=== PATIENT | female | born 1945 | race Caucasian/White ===

== ENCOUNTER 2021-06-21 19:31 | Inpatient (IN) ==
[2021-06-21] MEDS ORDERED: 0.9 % SODIUM CHLORIDE 500 ML IV ONE ×3 (20:14→23:56)
[2021-06-21 21:04] LABS: POC Calcium, Ionized 1.87 (1.16-1.32); POC Creatinine 2.8 (0.6-1.2); POC Potassium 3.8 (3.3-5.1)
--- NOTE | 2021-06-21 21:20 | Emergency Department Note ---
HPI General Chief complaint: Weakness Stated complaint: weakness confusion Time Seen by Provider: 06/21/21 20:06 Source: EMS Mode of arrival: ambulatory Limitations: altered mental status History of Present Illness HPI Narrative: Narrative: 75-year-old female with a history of sarcoidosis CKD, dermatitis, memory deficit, OK, rheumatoid arthritis presenting to the ED for some generalized weakness. Her family member or roommate she says reports she has had some mild intermittent confusion and suspect she may have a UTI which she has had in the past. Patient just has some generalized fatigue she has no fever no chills no URI symptoms no chest pain or shortness of breath or cardiorespiratory complaints no abdominal pain no nausea vomiting or diarrhea, no obvious urinary symptoms but does admit she has had UTIs in the past. No other complaints Related Data Home Medications Medication Instructions Recorded Confirmed albuterol sulfate 90 mcg/actuation 2 puff INHALATION Q6H PRN 05/19/19 05/31/21 aerosol inhaler (Ventolin HFA) epinephrine 0.3 mg/0.3 mL 0.3 mg IM ONCE 05/19/19 05/31/21 injection, auto-injector acetaminophen 500 mg capsule 3,000 mg PO QDAY PRN cap 10/19/20 05/31/21 lidocaine 5 % topical patch 1 patch TOPICAL QDAY 10/19/20 05/31/21 calcium carbonate-vitamin D3 1 tab PO BID 12/08/20 05/31/21 [Calcium 600 + D(3)] escitalopram oxalate 20 mg tablet 40 mg PO QDAY tab 12/08/20 05/31/21 docusate sodium 250 mg capsule 250 mg PO BID 02/03/21 05/31/21 fluticasone propionate 50 2 spray INTRANASAL QDAY 02/03/21 05/31/21 mcg/actuation nasal spray,suspension (Flonase Allergy Relief) furosemide 40 mg tablet 40 mg PO QDAY 02/03/21 05/31/21 loratadine 10 mg tablet (Allergy 10 mg PO QDAY 02/03/21 05/31/21 Relief (loratadine)) potassium chloride 10 mEq 10 meq PO TID cap 02/03/21 05/31/21 capsule,extended release sennosides 8.6 mg tablet (Natural 8.6 mg PO QDAY PRN 02/03/21 05/31/21 Senna Laxative) hydroxyzine HCl 10 mg tablet 10 mg PO TID PRN 05/31/21 05/31/21 Allergies Allergy/AdvReac Type Severity Reaction Status Date / Time alendronate sodium Allergy Severe Unknown Verified 05/31/21 13:18 [From Fosamax] Penicillins Allergy Severe Unknown Verified 05/31/21 13:18 Hwkkfvj-PFT-FpV Reductase Allergy Severe Unknown Verified 05/31/21 13:18 Inhibitor [Hfqvcam-Asq-Owv Reductase Inhibitor] adhesive tape Allergy Unknown Unknown Verified 05/31/21 13:18 aspirin [From Percodan] Allergy Unknown Unknown Verified 05/31/21 13:18 atorvastatin Allergy Unknown Unknown Verified 05/31/21 13:18 carbamazepine Allergy Unknown Unknown Verified 05/31/21 13:18 egg Allergy Unknown Unknown Verified 05/31/21 13:18 feathers Allergy Unknown Unknown Verified 05/31/21 13:18 latex Allergy Unknown Unknown Verified 05/31/21 13:18 monosodium glutamate Allergy Unknown Unknown Verified 05/31/21 13:18 oxycodone Allergy Unknown Unknown Verified 05/31/21 13:18 pravastatin Allergy Unknown Unknown Verified 05/31/21 13:18 simvastatin [From Zocor] Allergy Unknown Unknown Verified 05/31/21 13:18 Sulfa (Sulfonamide Allergy Unknown Unknown Verified 05/31/21 13:18 Antibiotics) tramadol Allergy Unknown Unknown Verified 05/31/21 13:18 Review of Systems ROS ROS Narrative: Narrative: All systems ED: reviewed and negative except as stated. 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) Seasonal allergies (Chronic) Decreased urination (Chronic) Anxiety and depression (Chronic) Rheumatoid arthritis (Chronic) Upper back pain (Chronic) Leg pain (Chronic) DJD (degenerative joint disease) of knee (Chronic) Dizziness (Chronic) Arthritis (Chronic) Elevated sed rate (Chronic) CTIN (chronic tubulo-interstitial nephritis) (Chronic) Osteoarthritis (Chronic) CKD stage G3b/A2, GFR 30-44 and albumin creatinine ratio 30-299 mg/g (Chronic) Positive CHANNING (antinuclear antibody) (Chronic) Trigeminal neuralgia (Chronic) Hyperplastic colon polyp (Chronic) Adjustment disorder with depressed mood (Chronic) Allergic rhinitis (Chronic) Anemia, unspecified (Chronic) Benign neoplasm of colon (Chronic) Disorder of kidney and ureter, unspecified (Chronic) Closed fracture of lumbar vertebra (Chronic) Hyperlipidemia, unspecified (Chronic) Idiopathic urticaria (Chronic) Morbid (severe) obesity due to excess calories (Chronic) Neoplasm of unspecified behavior of digestive system (Chronic) BEHZAD (obstructive sleep apnea) (Chronic) Old myocardial infarction (Chronic) Other asthma (Chronic) Other osteoporosis without current pathological fracture (Chronic) Venous (peripheral) insufficiency (Chronic) Venous thrombosis (Chronic) Vitamin D deficiency (Chronic) Weakness (Acute) Acute exacerbation of CHF (congestive heart failure) (Acute) Facial rash (Acute) Encounter for screening for malignant neoplasm of colon (Acute) Hypercalcemia (Acute) Sarcoidosis of skin (Acute) Hypercalcemia (Acute) UTI (urinary tract infection) (Acute) BILLY (acute kidney injury) (Acute) Medical History Adenoid cystic carcinoma of parotid gland Adjustment disorder with depressed mood Allergic rhinitis Anemia, unspecified Anxiety and depression Arthritis Asymptomatic varicose veins Atrial enlargement, left Benign neoplasm of colon Cellulitis Legs CKD stage G3b/A2, GFR 30-44 and albumin creatinine ratio 30-299 mg/g Stable or slightly improved No evidence of glomerular nephritis or vasculitis TIN due to SArcoidosis and or NSAIDS/BL[place] II possible Closed fracture of lumbar vertebra CTIN (chronic tubulo-interstitial nephritis) Decreased renal function It would be easy to attribute all this patient's maladies to morbid obesity and DJD, however to do that you would have to ignore consistently elevated sedimentation rate now above 100 mm/h. That said, she has been diagnosed with a "vasculitis involving her skin" proximal muscle weakness that could be due to steroid use in the past or a myelopathy, skin changes that probably represent venous insufficiency but cannot ignore a vasculitic process, and finally an elevation in her creatinine most pronounced recently when she was on Celebrex but her GFR was not normal even back in 2013 and she now has 2 urinalyses that demonstrate marked pyuria. All that said, we need to obtain radiographic and laboratory evidence to look for a vasculitis involving the kidneys and perhaps the muscles. Decreased urination Deep vein thrombosis Disorder of kidney and ureter, unspecified Dizziness DJD (degenerative joint disease) of knee Elevated sed rate Doubt this has anything to do with the weakly positive CHANNING Sed rate greater than 100 raises the specter of a mitotic process and she is already had a parotid cancer resected Would benefit from comprehensive cancer screening through the [facility] Fungal dermatitis Hyperlipidemia, unspecified Hyperplastic colon polyp Idiopathic urticaria Leg pain Memory deficit Morbid (severe) obesity due to excess calories Morbid obesity Neoplasm of unspecified behavior of digestive system Old myocardial infarction BEHZAD (obstructive sleep apnea) Osteoarthritis Other asthma Other osteoporosis without current pathological fracture Positive CHANNING (antinuclear antibody) Certainly no evidence of lupus nephritis Rash and ESR > 100 suggests some sort of dermatositis / vasculitis STOP carbamazepine BASIS soap Avoid covid masking See Rheumatology and Dermatology Repeat serologies but not very informative in the past Rheumatoid arthritis Right bundle branch block Seasonal allergies Sedimentation rate elevation Given new rash...dermatology referral but to be honest, elevated ESR predated rash Trigeminal neuralgia Upper back pain Urge incontinence Vascular insufficiency of limb Vasculitis of skin Venous (peripheral) insufficiency Venous thrombosis Vision changes Vitamin D deficiency Surgical History History of bilateral breast reduction surgery History of colonoscopy (~2009) History of dental surgery full mouth extraction History of facial surgery Cancer was removed off of left side of pt face. History of superficial parotidectomy left level 2a dissection, sternocleidomastoid rotation flap History of surgery Fissurectomy Family History Mother Macular degeneration Glaucoma Father Myocardial infarction Brother Diabetes Asthma Sister Crohn's disease Lupus (systemic lupus erythematosus) Daughter Bipolar disorder Social History Smoking Status: Former smoker Alcohol Intake Frequency: a few times a month Substance Use: does not use Exam Narrative Narrative: Narrative: Constitutional: normally developed, a bit frail but nontoxic- appearing. Head: Normocephalic, atraumatic, Eyes: No Icterus, ENT: Dry mucus membranes, Neck: Supple, Cardiac: Normal heart sounds, palpable radial pulses, no peripheral edema Pulmonary: Normal respiratory effort. Breath sounds clear, no wheeze, rhonchi, rales, Gastrointestinal: Abdomen soft, non-distended, non-tender, Musculoskeletal: No gross deformities, well perfused Skin: warm, dry, generalized dry dermatitis appearance Neuro: Alert and orientedx2-3 answers most questions appropriately moving all 4 extremities with symmetric strength albeit some mild generalized weakness General Limitations: altered mental status Course Vital Signs Vital signs: Vital Signs Temperature 36.5 C 06/21/21 19:33 Pulse Rate 81 06/21/21 19:33 Respiratory Rate 17 06/21/21 19:33 Blood Pressure 148/73 06/21/21 19:33 Pulse Oximetry (%) 97 06/21/21 19:33 Temperature 35.9 C L 06/22/21 02:35 Pulse Rate 65 06/22/21 02:35 Respiratory Rate 20 06/22/21 02:35 Blood Pressure 129/79 06/22/21 02:35 Pulse Oximetry (%) 100 06/22/21 02:35 MDM MDM Narrative Medical decision making narrative: Narrative: 75-year-old with generalized weakness work-up is initiated she does appear dry is given some IV fluids she is concerned she may have a UTI family member reports some intermittent episodes of confusion she is A-O x2-3 here no focal neurologic deficits. Initial twelve-lead EKG wandering baseline does show sinus rhythm heart rate 65 SC, QTc within normal does have right bundle branch block pattern, I do not appreciate any overt ST elevations or reciprocal changes suggestive of STEMI criteria but given wandering baseline we will repeat Repeat twelve-lead EKG at 2058 better visualization is simply sinus rhythm heart rate 65 normal QTC with her known right bundle branch block, when compared to prior EKGs no significant changes no STEMI criteria CBC no leukocytosis no anemia electrolytes show a creatinine of 2.3 baseline 1.9, glucose low normal 64 so she was given some p.o. carbohydrates which she tolerated well Calcium is quite elevated 15.7 and 1.8 ionized, previous 12.8. No known malignancy but does have known sarcoidosis which I suspect may be the underlying etiology of her hypercalcemia LFTs bilirubin normal Troponin negative Urinalysis does appear infectious positive nitrates leukocyte esterase WBCs Patient is started on antibiotics for UTI For her hypercalcemia she is given IV fluids total of 1.5 L and started on some maintenance. Does appear that might be causing some very mild EKG changes. Did speak with Dr. Ness who accepts admission. And on reevaluation with antibiotics and IV fluids patient's mental status and overall appearance does appear improved she has no new complaints Lab Data Result diagrams: 06/21/21 21:04 06/21/21 21:04 Labs: Lab Results 06/21/21 06/21/21 06/21/21 Range/Units 20:58 21:01 21:04 WBC 6.3 (4.5-11.0) K/mcL RBC 4.47 (3.59-5.38) M/mcL Hgb 12.8 (11.2-15.7) g/dL Hct 39.3 (34.1-44.9) % POC Hct 36.0 (36-48) MCV 87.9 (80.0-100.0) fL MCH 28.6 (26.0-34.0) pg MCHC 32.6 (31.0-36.0) g/dL RDW 13.4 (11.5-14.5) % Plt Count 218 (140-440) K/mcL MPV 11.2 H (7.4-10.4) fL Neut % (Auto) 60.5 (38.0-78.0) % Lymph % (Auto) 19.6 (15.5-49.0) % Bucks % (Auto) 18.8 H (1.0-12.0) % Eos % (Auto) 0.3 (0.0-7.0) % Baso % (Auto) 0.8 (0.0-2.0) % Lymph # (Auto) 1.23 L (1.50-4.80) K/mcL Bucks # (Auto) 1.18 H (0.10-0.90) K/mcL Eos # (Auto) 0.02 (0.00-0.70) K/mcL Baso # (Auto) 0.05 (0.00-0.30) K/mcL Absolute Neutrophils 3.81 (1.80-8.00) K/mcL POC Sodium 138 (133-145) Sodium (133-145) mmol/L POC Potassium 3.8 (3.3-5.1) Potassium (3.3-5.1) mmol/L POC Chloride 100 (96-108) Chloride (96-108) mmol/L Carbon Dioxide (22-30) mmol/L POC Total CO2 28.0 (22-30) Anion Gap (8.0-16.0) POC BUN 39 H (6-20) BUN (8-23) mg/dL Creatinine (0.6-1.1) mg/dL POC Creatinine 2.8 H (0.6-1.2) GFR Calculation Glucose (70-105) mg/dL POC Glucose 71 (70-105) Calcium (8.6-10.4) mg/dL POC WB Ioniz Calcium 1.87 H* (1.16-1.32) Total Bilirubin (0.1-1.0) mg/dL AST (<32) U/L ALT (<40) U/L Alkaline Phosphatase (39-117) U/L Total Protein (5.9-8.4) gm/dL Albumin (3.2-5.2) gm/dL Globulin (2.2-3.7) gm/dL Albumin/Globulin Ratio (1.0-2.3) Lipase (7-60) U/L Urine Color Urine Appearance (Clear) Urine pH (5.0-9.0) Ur Specific [place] (1.000-1.035) Urine Protein (Negative) mg/dL Urine Glucose (UA) (Negative) mg/dL Urine Ketones (Negative) mg/dL Urine Occult Blood (Negative) mg/dL Urine Nitrate (Negative) Urine Bilirubin (Negative) mg/dL Urine Urobilinogen mg/dL Ur Leukocyte Esterase (Negative) /uL Urine RBC (0-3) /hpf Urine WBC (0-4) /hpf Ur Squamous Epith Cells (0-4) /hpf Urine Bacteria (0) /hpf Ur Culture Indicated? POC Troponin I 0.05 06/21/21 06/21/21 Range/Units 21:04 23:21 WBC (4.5-11.0) K/mcL RBC (3.59-5.38) M/mcL Hgb (11.2-15.7) g/dL Hct (34.1-44.9) % POC Hct (36-48) MCV (80.0-100.0) fL MCH (26.0-34.0) pg MCHC (31.0-36.0) g/dL RDW (11.5-14.5) % Plt Count (140-440) K/mcL MPV (7.4-10.4) fL Neut % (Auto) (38.0-78.0) % Lymph % (Auto) (15.5-49.0) % Bucks % (Auto) (1.0-12.0) % Eos % (Auto) (0.0-7.0) % Baso % (Auto) (0.0-2.0) % Lymph # (Auto) (1.50-4.80) K/mcL Bucks # (Auto) (0.10-0.90) K/mcL Eos # (Auto) (0.00-0.70) K/mcL Baso # (Auto) (0.00-0.30) K/mcL Absolute Neutrophils (1.80-8.00) K/mcL POC Sodium (133-145) Sodium 138 (133-145) mmol/L POC Potassium (3.3-5.1) Potassium 3.7 (3.3-5.1) mmol/L POC Chloride (96-108) Chloride 96 (96-108) mmol/L Carbon Dioxide 28 (22-30) mmol/L POC Total CO2 (22-30) Anion Gap 14.0 (8.0-16.0) POC BUN (6-20) BUN 38 H (8-23) mg/dL Creatinine 2.3 H (0.6-1.1) mg/dL POC Creatinine (0.6-1.2) GFR Calculation 20 Glucose 64 L (70-105) mg/dL POC Glucose (70-105) Calcium 15.7 H* (8.6-10.4) mg/dL POC WB Ioniz Calcium (1.16-1.32) Total Bilirubin 0.8 (0.1-1.0) mg/dL AST 21 (<32) U/L ALT 10 (<40) U/L Alkaline Phosphatase 68 (39-117) U/L Total Protein 7.6 (5.9-8.4) gm/dL Albumin 4.0 (3.2-5.2) gm/dL Globulin 3.6 (2.2-3.7) gm/dL Albumin/Globulin Ratio 1.1 (1.0-2.3) Lipase 33 (7-60) U/L Urine Color Yellow Urine Appearance Cloudy A (Clear) Urine pH 6.0 (5.0-9.0) Ur Specific [place] 1.011 (1.000-1.035) Urine Protein Negative (Negative) mg/dL Urine Glucose (UA) Negative (Negative) mg/dL Urine Ketones Negative (Negative) mg/dL Urine Occult Blood 0.20 (Negative) mg/dL Urine Nitrate Pos A (Negative) Urine Bilirubin Negative (Negative) mg/dL Urine Urobilinogen Negative mg/dL Ur Leukocyte Esterase 250 A (Negative) /uL Urine RBC 9 H (0-3) /hpf Urine WBC > 182 H (0-4) /hpf Ur Squamous Epith Cells 1 (0-4) /hpf Urine Bacteria Many A (0) /hpf Ur Culture Indicated? yes POC Troponin I ED POC Tests ED POC Tests: MAXWELL - SARS Antigen Negative Discharge Plan Patient/Caregiver Discharge Instructions Pt seen by [employer]/PA only: No Clinical Impression: Hypercalcemia, UTI (urinary tract infection), BILLY (acute kidney injury) Patient Disposition: Xfer As Inpt ([facility]) Condition: Fair Discharge Date/Time: 06/22/21 02:26
[2021-06-21 21:58] LABS: Basophils # (Auto) 0.05 K/mcL (0.00-0.30); Basophils % (Auto) 0.8 % (0.0-2.0); Eosinophils # (Auto) 0.02 K/mcL (0.00-0.70); Eosinophils % (Auto) 0.3 % (0.0-7.0); Hematocrit 39.3 % (34.1-44.9); Hemoglobin 12.8 g/dL (11.2-15.7); Lymphocytes # (Auto) 1.23 K/mcL (1.50-4.80); Lymphocytes % (Auto) 19.6 % (15.5-49.0); Mean Cell Volume 87.9 fL (80.0-100.0); Mean Corpuscular HGB Conc 32.6 g/dL (31.0-36.0); Mean Platelet Volume 11.2 fL (7.4-10.4); Monocytes # (Auto) 1.18 K/mcL (0.10-0.90); Monocytes % (Auto) 18.8 % (1.0-12.0); Neutrophils % (Auto) 60.5 % (38.0-78.0); Platelet Count 218 K/mcL (140-440); RBC 4.47 M/mcL (3.59-5.38); Red Cell Distribution Width 13.4 % (11.5-14.5); WBC 6.3 K/mcL (4.5-11.0)
[2021-06-21 22:25] LABS: ALT/SGPT 10 U/L (<40); AST/SGOT 21 U/L (<32); Albumin/Globulin Ratio 1.1 (1.0-2.3); Alkaline Phosphatase 68 U/L (39-117); Bilirubin,Total 0.8 mg/dL (0.1-1.0); Blood Urea Nitrogen 38 mg/dL (8-23); Calcium 15.7 mg/dL (8.6-10.4); Carbon Dioxide 28 mmol/L (22-30); Chloride 96 mmol/L (96-108); Globulin 3.6 gm/dL (2.2-3.7); Glomerular Filtration Rate 20; Glucose 64 mg/dL (70-105)
[2021-06-22 00:06] LABS: Appearance,Urine CLOUDY (Clear); Bacteria,Urine MANY /hpf (0); Bilirubin,Urine Negative (Negative); Color,Urine YELLOW; Culture Indicated,Urine yes; Glucose,Urine (UA) Negative (Negative); Ketones,Urine Negative (Negative); Leukocyte Esterase,Urine 250 /uL (Negative); Nitrate,Urine POS (Negative); Protein,Urine Negative (Negative); Specific Gravity,Urine 1.011 (1.000-1.035); Urine RBC 9 /hpf (0-3); Urine Squamous Epithelial Cell 1 /hpf (0-4); Urine WBC > 182 /hpf (0-4); Urobilinogen,Urine Negative
[2021-06-22] MEDS ORDERED: cefTRIAXone 1 GM VIAL IM ONE (00:11)
[2021-06-22] MEDS ORDERED: LEVOFLOXACIN 500 MG/100 ML BAG IV ONE (00:13)
[2021-06-22] MEDS ORDERED: PROMETHAZINE 25 MG/ML VIAL IM PRN (00:36)
[2021-06-22] MEDS ORDERED: ACETAMINOPHEN 325 MG TABLET PO PRN (00:36)
[2021-06-22] MEDS ORDERED: cefTRIAXone 2 GM VIAL IM ONE (04:22)
[2021-06-22] MEDS: 0.9 % SODIUM CHLORIDE 1,000 ML IV SCH ×3 (04:29→22:26)
[2021-06-22] MEDS ORDERED: cefTRIAXone 1 GM VIAL ONE (04:55)
[2021-06-22] MEDS ORDERED: MAGNESIUM SULFATE 2 GM/50 ML BAG IV PRN (07:41)
[2021-06-22] MEDS ORDERED: POLYETHYLENE GLYCOL 3350 17 GM PACKET PO PRN (07:41)
[2021-06-22] MEDS ORDERED: ONDANSETRON 4 MG/2 ML VIAL IV PRN (07:41)
[2021-06-22] MEDS ORDERED: ACETAMINOPHEN 650 MG/65 ML BAG IV PRN (07:41)
[2021-06-22] MEDS ORDERED: ONDANSETRON 4 MG ODT TABLET SL PRN (07:41)
[2021-06-22] MEDS ORDERED: BISACODYL 10 MG SUPP.RECT PR PRN (07:41)
[2021-06-22] MEDS ORDERED: guaiFENesin/CODEINE 10 ML UDC PO PRN (07:41)
[2021-06-22] MEDS ORDERED: POTASSIUM CHLORIDE 40 MEQ in DEXTROSE 5% IN WATER 500 ML IV PRN (07:41)
--- NOTE | 2021-06-22 07:47 | XRay Report ---
HISTORY: Fatigue, increased weakness and confusion FINDINGS: Lungs are clear and well-expanded. The heart size and pulmonary vasculature are normal. The mediastinum, matti and pleura are normal. Comparison with the prior exam from 12/21/20 shows resolution of the previously seen widespread bilateral alveolar opacities. IMPRESSION: Normal exam Interpreted and Authenticated by: Benedict Aaron 06/22/21
[2021-06-22] MEDS ORDERED: PAMIDRONATE 60 MG in 0.9 % SODIUM CHLORIDE 500 ML IV ONE (08:00)
--- NOTE | 2021-06-22 09:21 | Cat Scan Report ---
History: Altered mental status, Increased weakness and confusion. TECHNIQUE: The brain was imaged without contrast in axial plane at 2.5 mm intervals. Sagittal and coronal reformats were created. The radiation exposure was limited using dose reduction technology. FINDINGS: There is mild atrophy, most apparent in the frontal and temporal lobes. There are ill-defined zones of decreased attenuation in the centrum semiovale in both frontal lobes, with milder involvement in the parietal lobes. There is no evidence of an infarct, hemorrhage or mass. The ventricles are normal in size. No abnormal extra-axial fluid collection is present. There are scattered plaques in the right vertebral artery and cavernous portions of both internal carotids. IMPRESSION: Age-related degenerative changes and no evidence of an infarct or acute abnormality Dr. Clark was called with the report Interpreted and Authenticated by: Benedict Aaron 06/22/21
--- NOTE | 2021-06-22 09:26 | Internal Med History&Physical ---
HPI History of Present Illness Patient information: Note initiated : 06/22/21 at 9:21 am Service Date, if different from initiated Date: [] Patient: Lolita Gutierrez a 75 y/o F admitted on 06/22/21 for weakness confusion. Chief Complaint: [] History of present illness: Ms. Gutierrez is a 75 year old F with a history of CKD stage III /obesity/DJD/RA and sarcoidosis who presented to the ER for worsening weakness that progressed over the last few days. over the last few days she became confused, lethargic, and unable to function. She also complains of loss of appetite and abdominal discomfort. Initial work-up in the ER was consistent with complicated UTI with pyuria and a calcium of 15.7. Patient was started on crystalloid/antibiotic coverage and subsequently hospitalist service was consulted. At the time of evaluation patient is alert and able to answer most the questions. Demonstrates pleasant demeanor. Denies diarrhea endorses dysuria. Denies abdominal pain, shortness of breath, chest pain, fever joint pain or rash. Patient has been taking calcium vitamin D supplements in addition to Rolaids Review of systems 10 point review system was performed and is negative except as above PFSH PFSH All Active Problems Decreased renal function (Chronic) Urge incontinence (Chronic) Memory deficit (Chronic) Sedimentation rate elevation (Chronic) Cellulitis (Chronic) Morbid obesity (Chronic) Fungal dermatitis (Chronic) Right bundle branch block (Chronic) Atrial enlargement, left (Chronic) Vision changes (Chronic) Asymptomatic varicose veins (Chronic) Deep vein thrombosis (Chronic) Vascular insufficiency of limb (Chronic) 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) Seasonal allergies (Chronic) Decreased urination (Chronic) Anxiety and depression (Chronic) Rheumatoid arthritis (Chronic) Upper back pain (Chronic) Leg pain (Chronic) DJD (degenerative joint disease) of knee (Chronic) Dizziness (Chronic) Arthritis (Chronic) Elevated sed rate (Chronic) CTIN (chronic tubulo-interstitial nephritis) (Chronic) Osteoarthritis (Chronic) CKD stage G3b/A2, GFR 30-44 and albumin creatinine ratio 30-299 mg/g (Chronic) Positive CHANNING (antinuclear antibody) (Chronic) Trigeminal neuralgia (Chronic) Hyperplastic colon polyp (Chronic) Adjustment disorder with depressed mood (Chronic) Allergic rhinitis (Chronic) Anemia, unspecified (Chronic) Benign neoplasm of colon (Chronic) Disorder of kidney and ureter, unspecified (Chronic) Closed fracture of lumbar vertebra (Chronic) Hyperlipidemia, unspecified (Chronic) Idiopathic urticaria (Chronic) Morbid (severe) obesity due to excess calories (Chronic) Neoplasm of unspecified behavior of digestive system (Chronic) BEHZAD (obstructive sleep apnea) (Chronic) Old myocardial infarction (Chronic) Other asthma (Chronic) Other osteoporosis without current pathological fracture (Chronic) Venous (peripheral) insufficiency (Chronic) Venous thrombosis (Chronic) Vitamin D deficiency (Chronic) Weakness (Acute) Acute exacerbation of CHF (congestive heart failure) (Acute) Facial rash (Acute) Encounter for screening for malignant neoplasm of colon (Acute) Hypercalcemia (Acute) Sarcoidosis of skin (Acute) Hypercalcemia (Acute) UTI (urinary tract infection) (Acute) BILLY (acute kidney injury) (Acute) Medical History Adenoid cystic carcinoma of parotid gland Adjustment disorder with depressed mood Allergic rhinitis Anemia, unspecified Anxiety and depression Arthritis Asymptomatic varicose veins Atrial enlargement, left Benign neoplasm of colon Cellulitis Legs CKD stage G3b/A2, GFR 30-44 and albumin creatinine ratio 30-299 mg/g Stable or slightly improved No evidence of glomerular nephritis or vasculitis TIN due to SArcoidosis and or NSAIDS/BLOUNT II possible Closed fracture of lumbar vertebra CTIN (chronic tubulo-interstitial nephritis) Decreased renal function It would be easy to attribute all this patient's maladies to morbid obesity and DJD, however to do that you would have to ignore consistently elevated sedimentation rate now above 100 mm/h. That said, she has been diagnosed with a "vasculitis involving her skin" proximal muscle weakness that could be due to steroid use in the past or a myelopathy, skin changes that probably represent venous insufficiency but cannot ignore a vasculitic process, and finally an elevation in her creatinine most pronounced recently when she was on Celebrex but her GFR was not normal even back in 2013 and she now has 2 urinalyses that demonstrate marked pyuria. All that said, we need to obtain radiographic and laboratory evidence to look for a vasculitis involving the kidneys and perhaps the muscles. Decreased urination Deep vein thrombosis Disorder of kidney and ureter, unspecified Dizziness DJD (degenerative joint disease) of knee Elevated sed rate Doubt this has anything to do with the weakly positive CHANNING Sed rate greater than 100 raises the specter of a mitotic process and she is already had a parotid cancer resected Would benefit from comprehensive cancer screening through the [facility] Fungal dermatitis Hyperlipidemia, unspecified Hyperplastic colon polyp Idiopathic urticaria Leg pain Memory deficit Morbid (severe) obesity due to excess calories Morbid obesity Neoplasm of unspecified behavior of digestive system Old myocardial infarction BEHZAD (obstructive sleep apnea) Osteoarthritis Other asthma Other osteoporosis without current pathological fracture Positive CHANNING (antinuclear antibody) Certainly no evidence of lupus nephritis Rash and ESR > 100 suggests some sort of dermatositis / vasculitis STOP carbamazepine BASIS soap Avoid covid masking See Rheumatology and Dermatology Repeat serologies but not very informative in the past Rheumatoid arthritis Right bundle branch block Seasonal allergies Sedimentation rate elevation Given new rash...dermatology referral but to be honest, elevated ESR predated rash Trigeminal neuralgia Upper back pain Urge incontinence Vascular insufficiency of limb Vasculitis of skin Venous (peripheral) insufficiency Venous thrombosis Vision changes Vitamin D deficiency Surgical History History of bilateral breast reduction surgery History of colonoscopy (~2009) History of dental surgery full mouth extraction History of facial surgery Cancer was removed off of left side of pt face. History of superficial parotidectomy left level 2a dissection, sternocleidomastoid rotation flap History of surgery Fissurectomy Family History Mother Macular degeneration Glaucoma Father Myocardial infarction Brother Diabetes Asthma Sister Crohn's disease Lupus (systemic lupus erythematosus) Daughter Bipolar disorder Social History household members: friend(s) marital status: service: Yes occupational status: retired physical activity: walking smoking status stop date: 02/26/07 alcohol intake frequency: a few times a month substance use type: does not use MEDS/ALLERGIES Home Medications and Allergies Home Medications Medication Instructions Recorded Confirmed Type albuterol sulfate 90 mcg/actuation 2 puff INHALATION Q6H PRN 05/19/19 06/22/21 History aerosol inhaler (Ventolin HFA) epinephrine 0.3 mg/0.3 mL 0.3 mg IM ONCE 05/19/19 06/22/21 History injection, auto-injector acetaminophen 500 mg capsule 3,000 mg PO QDAY PRN cap 10/19/20 06/22/21 History lidocaine 5 % topical patch 1 patch TOPICAL QDAY 10/19/20 06/22/21 History calcium carbonate-vitamin D3 1 tab PO BID 12/08/20 06/22/21 History [Calcium 600 + D(3)] escitalopram oxalate 20 mg tablet 40 mg PO QDAY tab 12/08/20 06/22/21 History docusate sodium 250 mg capsule 250 mg PO BID 02/03/21 06/22/21 History fluticasone propionate 50 2 spray INTRANASAL QDAY 02/03/21 06/22/21 History mcg/actuation nasal spray,suspension (Flonase Allergy Relief) furosemide 40 mg tablet 40 mg PO QDAY 02/03/21 06/22/21 History loratadine 10 mg tablet (Allergy 10 mg PO QDAY 02/03/21 06/22/21 History Relief (loratadine)) potassium chloride 10 mEq 10 meq PO TID cap 02/03/21 06/22/21 History capsule,extended release sennosides 8.6 mg tablet (Natural 8.6 mg PO QDAY PRN 02/03/21 06/22/21 History Senna Laxative) hydroxyzine HCl 10 mg tablet 10 mg PO TID PRN 05/31/21 06/22/21 History Allergies Allergy/AdvReac Type Severity Reaction Status Date / Time adhesive tape Allergy Unknown Unknown Verified 06/22/21 14:45 alendronate sodium Allergy Unknown Unknown Verified 06/22/21 14:45 [From Fosamax] aspirin [From Percodan] Allergy Unknown Unknown Verified 06/22/21 14:45 atorvastatin Allergy Unknown Unknown Verified 06/22/21 14:45 carbamazepine Allergy Unknown Unknown Verified 06/22/21 14:45 egg Allergy Unknown Unknown Verified 06/22/21 14:45 latex Allergy Unknown Unknown Verified 06/22/21 14:45 monosodium glutamate Allergy Unknown Unknown Verified 06/22/21 14:45 oxycodone Allergy Unknown Unknown Verified 06/22/21 14:45 Penicillins Allergy Unknown Unknown Verified 06/22/21 14:45 pravastatin Allergy Unknown Unknown Verified 06/22/21 14:45 simvastatin [From Zocor] Allergy Unknown Unknown Verified 06/22/21 14:45 Oihggxl-ABB-PqE Reductase Allergy Unknown Unknown Verified 06/22/21 14:45 Inhibitor [Kvcqwfh-Kgt-Rtm Reductase Inhibitor] Sulfa (Sulfonamide Allergy Unknown Unknown Verified 06/22/21 14:45 Antibiotics) tramadol Allergy Unknown Unknown Verified 06/22/21 14:45 EXAM Constitutional Vitals: Temp Pulse Resp BP Pulse Ox 97.6 F 61 18 129/79 100 06/22/21 07:03 06/22/21 07:03 06/22/21 07:03 06/22/21 02:35 06/22/21 07:03 Alert but anxious Head normocephalic Oral cavity moist No ear or nose discharge Eye no subconjunctival pallor, movement symmetrical S1-S2 regular, ESM grade 1 Nonlabored breathing Nondistended abdomen Lower extremity no cyanosis clubbing or joint swelling Skin appears dry, no suspicious lesion Psych anxious but no hallucination Neuro normal higher function on limited neuro exam GCS 14 DATA Data Completed and Pending Labs: Labs from last 24 hours 06/22/21 06/22/21 06/22/21 07:53 07:51 07:51 WBC RBC Hgb Hct POC Hct MCV MCH MCHC RDW Plt Count MPV Neut % (Auto) Lymph % (Auto) [place] % (Auto) Eos % (Auto) Baso % (Auto) Lymph # (Auto) [place] # (Auto) Eos # (Auto) Baso # (Auto) Absolute Neutrophils POC Sodium Sodium POC Potassium Potassium POC Chloride Chloride Carbon Dioxide POC Total CO2 Anion Gap POC BUN BUN Creatinine POC Creatinine GFR Calculation Glucose POC Glucose Calcium POC WB Ioniz Calcium Total Bilirubin AST ALT Alkaline Phosphatase C-Reactive Protein 1.20 H Total Protein Albumin Globulin Albumin/Globulin Ratio Lipase Vit D 1,25-Dihydroxy Pending 1,25 Dihydroxy Vit D2 Pending 1,25 Dihydroxy Vit D3 Pending PTH Related Protein Pending Urine Color Urine Appearance Urine pH Ur Specific [place] Urine Protein Urine Glucose (UA) Urine Ketones Urine Occult Blood Urine Nitrate Urine Bilirubin Urine Urobilinogen Ur Leukocyte Esterase Urine RBC Urine WBC Ur Squamous Epith Cells Urine Bacteria Ur Culture Indicated? POC Troponin I 06/21/21 06/21/21 06/21/21 23:21 21:04 21:04 WBC 6.3 RBC 4.47 Hgb 12.8 Hct 39.3 POC Hct MCV 87.9 MCH 28.6 MCHC 32.6 RDW 13.4 Plt Count 218 MPV 11.2 H Neut % (Auto) 60.5 Lymph % (Auto) 19.6 [place] % (Auto) 18.8 H Eos % (Auto) 0.3 Baso % (Auto) 0.8 Lymph # (Auto) 1.23 L [place] # (Auto) 1.18 H Eos # (Auto) 0.02 Baso # (Auto) 0.05 Absolute Neutrophils 3.81 POC Sodium Sodium 138 POC Potassium Potassium 3.7 POC Chloride Chloride 96 Carbon Dioxide 28 POC Total CO2 Anion Gap 14.0 POC BUN BUN 38 H Creatinine 2.3 H POC Creatinine GFR Calculation 20 Glucose 64 L POC Glucose Calcium 15.7 H* POC WB Ioniz Calcium Total Bilirubin 0.8 AST 21 ALT 10 Alkaline Phosphatase 68 C-Reactive Protein Total Protein 7.6 Albumin 4.0 Globulin 3.6 Albumin/Globulin Ratio 1.1 Lipase 33 Vit D 1,25-Dihydroxy 1,25 Dihydroxy Vit D2 1,25 Dihydroxy Vit D3 PTH Related Protein Urine Color Yellow Urine Appearance Cloudy A Urine pH 6.0 Ur Specific [place] 1.011 Urine Protein Negative Urine Glucose (UA) Negative Urine Ketones Negative Urine Occult Blood 0.20 Urine Nitrate Pos A Urine Bilirubin Negative Urine Urobilinogen Negative Ur Leukocyte Esterase 250 A Urine RBC 9 H Urine WBC > 182 H Ur Squamous Epith Cells 1 Urine Bacteria Many A Ur Culture Indicated? yes POC Troponin I 06/21/21 06/21/21 21:01 20:58 WBC RBC Hgb Hct POC Hct 36.0 MCV MCH MCHC RDW Plt Count MPV Neut % (Auto) Lymph % (Auto) [place] % (Auto) Eos % (Auto) Baso % (Auto) Lymph # (Auto) [place] # (Auto) Eos # (Auto) Baso # (Auto) Absolute Neutrophils POC Sodium 138 Sodium POC Potassium 3.8 Potassium POC Chloride 100 Chloride Carbon Dioxide POC Total CO2 28.0 Anion Gap POC BUN 39 H BUN Creatinine POC Creatinine 2.8 H GFR Calculation Glucose POC Glucose 71 Calcium POC WB Ioniz Calcium 1.87 H* Total Bilirubin AST ALT Alkaline Phosphatase C-Reactive Protein Total Protein Albumin Globulin Albumin/Globulin Ratio Lipase Vit D 1,25-Dihydroxy 1,25 Dihydroxy Vit D2 1,25 Dihydroxy Vit D3 PTH Related Protein Urine Color Urine Appearance Urine pH Ur Specific [place] Urine Protein Urine Glucose (UA) Urine Ketones Urine Occult Blood Urine Nitrate Urine Bilirubin Urine Urobilinogen Ur Leukocyte Esterase Urine RBC Urine WBC Ur Squamous Epith Cells Urine Bacteria Ur Culture Indicated? POC Troponin I 0.05 A/P Narrative A/P Narrative: [id number] with history of RA/doses admitted with volume depletion/hypercalcemia/complicated UTI and mental status change * Hypercalcemia over 15. Possibly iatrogenic however rule out malignancy. Start bisphosphonate/crystalloids * Mental status change secondary hypercalcemia * Complicated UTI-antibiotic coverage, de-escalate based on culture sensitivities * Severe volume depletion secondary to hypercalcemia continue crystalloids * Anxiety disorder continue SSRI * History of RAD continue bronchodilators as needed. Plan * Inpatient admission * Antibiotic coverage * Crystalloids * IV bisphosphonate * Pre-existing medical condition management on home medication * PT OT nutrition support * discharge planning Time Spent With Patient Time: Total time spent is greater than 50% in coordination of care (as documented) at patient's floor/unit and/or counseling patient: QUALITY VTE Deep Vein Thrombosis/Pulmonary Embolism Present on Admission: No
[2021-06-22] MEDS: DOCUSATE SODIUM 100 MG CAPSULE PO SCH ×2 (10:08→21:02)
[2021-06-22] MEDS: HEPARIN 5,000 UNIT/ML VIAL SQ SCH ×2 (10:08→21:01)
[2021-06-22] MEDS: MULTIVIT,THER IRON,CA,FA & MIN 1 TABLET PO SCH (10:08)
[2021-06-22] MEDS ORDERED: 0.9 % SODIUM CHLORIDE 10 ML SYRINGE IV PRN (11:39)
--- NOTE | 2021-06-22 12:54 | XRay Report ---
HISTORY: Central line insertion, weakness and confusion FINDINGS: A right internal jugular catheter has been inserted. The tip is in the region of the superior aspect of the right atrium. There is no pneumothorax, pleural effusion or widening of the mediastinum. The lungs are clear and well expanded. The heart size and pulmonary vasculature are normal. IMPRESSION: Well-positioned central venous line in the superior aspect of the right atrium Interpreted and Authenticated by: Benedict Aaron 06/22/21
[2021-06-22] MEDS: cefTRIAXone 2 GM in DEXTROSE 5% IN WATER 50 ML IV SCH (13:50)
[2021-06-22] MEDS: 0.9 % SODIUM CHLORIDE 10 ML SYRINGE IV SCH ×3 (17:12→21:14)
[2021-06-22] MEDS: SENNOSIDES/DOCUSATE SODIUM 1 TAB TABLET PO SCH (21:02)
[2021-06-23] MEDS: 0.9 % SODIUM CHLORIDE 10 ML SYRINGE IV SCH ×5 (05:41→22:09)
[2021-06-23 07:53] LABS: ALT/SGPT 8 U/L (<40); AST/SGOT 20 U/L (<32); Albumin 3.1 gm/dL (3.2-5.2); Albumin/Globulin Ratio 1.1 (1.0-2.3); Alkaline Phosphatase 52 U/L (39-117); Bilirubin,Direct < 0.2 mg/dL (0-0.3); Bilirubin,Total 0.4 mg/dL (0.1-1.0); Blood Urea Nitrogen 30 mg/dL (8-23); Calcium 13.2 mg/dL (8.6-10.4); Carbon Dioxide 25 mmol/L (22-30); Chloride 102 mmol/L (96-108); Globulin 2.7 gm/dL (2.2-3.7); Glomerular Filtration Rate 24; Glucose 78 mg/dL (70-105); Lactate Dehydrogenase 118 U/L (135-225); Triglycerides 105 mg/dL (<150)
[2021-06-23] MEDS: cefTRIAXone 2 GM in DEXTROSE 5% IN WATER 50 ML IV SCH (08:35)
[2021-06-23] MEDS: 0.9 % SODIUM CHLORIDE 1,000 ML IV SCH (08:35)
[2021-06-23] MEDS: DOCUSATE SODIUM 100 MG CAPSULE PO SCH ×2 (08:36→20:19)
[2021-06-23] MEDS: MULTIVIT,THER IRON,CA,FA & MIN 1 TABLET PO SCH (08:36)
[2021-06-23] MEDS: HEPARIN 5,000 UNIT/ML VIAL SQ SCH ×2 (08:36→20:19)
[2021-06-23 09:16] LABS: Basophils # (Auto) 0.04 K/mcL (0.00-0.30); Eosinophils # (Auto) 0.03 K/mcL (0.00-0.70); Eosinophils % (Auto) 0.7 % (0.0-7.0); Hematocrit 32.2 % (34.1-44.9); Hemoglobin 10.5 g/dL (11.2-15.7); Lymphocytes # (Auto) 1.06 K/mcL (1.50-4.80); Mean Corpuscular HGB Conc 32.6 g/dL (31.0-36.0); Monocytes % (Auto) 29.4 % (1.0-12.0); Neutrophils % (Auto) 42.9 % (38.0-78.0); Platelet Count 168 K/mcL (140-440); RBC 3.62 M/mcL (3.59-5.38); Red Cell Distribution Width 13.6 % (11.5-14.5); WBC 4.1 K/mcL (4.5-11.0)
--- NOTE | 2021-06-23 11:40 | Internal Med Progress Note ---
SUBJECTIVE Subjective Patient information: Note initiated : 06/23/21 at 11:34 am Service Date, if different from initiated Date: [] Patient: Lolita Gutierrez a 75 y/o F admitted on 06/22/21 for weakness confusion. Chief Complaint: [] Interval history: Ms. Gutierrez is a 75 year old F with a history of CKD stage III /obesity/DJD/RA and sarcoidosis who presented to the ER for worsening weakness that progressed over the last few days. over the last few days she became confused, lethargic, and unable to function. She also complains of loss of appetite and abdominal discomfort. Initial work-up in the ER was consistent with complicated UTI with pyuria and a calcium of 15.7. Patient was started on crystalloid/antibiotic coverage and subsequently hospitalist service was consulted. 06/23-patient seen in room. No overnight events. Central line secured and now ongoing crystalloids/bisphosphonate/hypercalcemia treatments. Hemodynamic stable. Potassium 3.1 on replacement creatinine down to 2 from 2.3. Calcium 13.2 down from 15.7 post bisphosphonate/continue crystalloids. Much more lucid alert and mentating well, following commands, on antibiotic coverage for E. coli UTI. Await PTH, if appropriately suppressed check PTH RP. 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 Constitutional Vitals: Vital Signs Temp Pulse Resp BP Pulse Ox 97.2 F 89 12 118/66 99 06/23/21 07:17 06/23/21 07:17 06/23/21 07:17 06/23/21 07:17 06/23/21 07:17 Period Temp Pulse Resp BP Sys/[place] Pulse Ox Last 24 Hr 96.2 F-98 F 61-89 12-16 110-141/59-79 97-100 Intake and Output 06/22/21 06/23/21 06/23/21 21:59 05:59 13:59 Intake Total 1072 1268 1000 Output Total 151 225 Balance 921 1043 1000 Weight 91.671 kg Alert oriented Nonlabored breathing No anxiety Nondistended abdomen Right IJ quad lumen Intake & Output: Intake & Output 06/22/21 06/23/21 06/23/21 21:59 05:59 13:59 Intake Total 1072 1268 1000 Output Total 151 225 Balance 921 1043 1000 Weight 91.671 kg Intake: IV 324 687 0749 Sodium Chloride 0.9% 1,000 ml @ 868 1000 100 mls/hr IV .Q10H [facility] Rx#: [id number] Aredia 60 mg In Sodium Chloride 520 0.9% 500 ml @ 130 mls/hr IV 0800 ONE Rx#:[id number] Rocephin 2 gm In Dextrose 5% in 50 Water 50 ml @ 100 mls/hr IV Q24H [facility] Rx#:[id number] Oral 437 400 Output: Void Amount 150 225 # of times incontinent of urine 1 Other: Meal Dinner Percent of Meal Consumed 25% Feeding Ability Independent Urine Appearance Cloudy Clear Urine Color Dark Angelika Dark Yellow Urine Odor Normal OBJ DATA Labs CBC & Chem 7: 06/23/21 06:18 06/23/21 06:18 Labs: Abnormal Lab Results 06/23/21 06/23/21 06/22/21 06:18 06:18 07:53 WBC 4.1 L Hgb 10.5 L Hct 32.2 L MPV 11.0 H [place] % (Auto) 29.4 H Lymph # (Auto) 1.06 L [place] # (Auto) 1.20 H Absolute Neutrophils 1.75 L Potassium 3.1 L Anion Gap 7.0 L POC BUN BUN 30 H Creatinine 2.0 H POC Creatinine Glucose Calcium 13.2 H* POC WB Ioniz Calcium Lactate Dehydrogenase 118 L C-Reactive Protein 1.20 H Total Protein 5.8 L Albumin 3.1 L Urine Appearance Urine Nitrate Ur Leukocyte Esterase Urine RBC Urine WBC Urine Bacteria 06/21/21 06/21/21 06/21/21 23:21 21:04 21:04 WBC Hgb Hct MPV 11.2 H [place] % (Auto) 18.8 H Lymph # (Auto) 1.23 L [place] # (Auto) 1.18 H Absolute Neutrophils Potassium Anion Gap POC BUN BUN 38 H Creatinine 2.3 H POC Creatinine Glucose 64 L Calcium 15.7 H* POC WB Ioniz Calcium Lactate Dehydrogenase C-Reactive Protein Total Protein Albumin Urine Appearance Cloudy A Urine Nitrate Pos A Ur Leukocyte Esterase 250 A Urine RBC 9 H Urine WBC > 182 H Urine Bacteria Many A 06/21/21 21:01 WBC Hgb Hct MPV [place] % (Auto) Lymph # (Auto) [place] # (Auto) Absolute Neutrophils Potassium Anion Gap POC BUN 39 H BUN Creatinine POC Creatinine 2.8 H Glucose Calcium POC WB Ioniz Calcium 1.87 H* Lactate Dehydrogenase C-Reactive Protein Total Protein Albumin Urine Appearance Urine Nitrate Ur Leukocyte Esterase Urine RBC Urine WBC Urine Bacteria Meds: Medications Acetaminophen (Acetaminophen 325 Mg Tablet) 650 mg PO Q4-6HP PRN; Protocol PRN Reason: Per Pain Protocol/Fever > 101 Bisacodyl (Bisacodyl 10 Mg Supp.Rect) 10 mg AL Q2-3DAYS PRN PRN Reason: Constipation Docusate Sodium (Docusate Sodium 100 Mg Capsule) 100 mg PO BID [facility] Last Admin: 06/23/21 08:36 Dose: 100 mg Documented by: Guaifenesin/Codeine Phosphate (Guaifenesin/Codeine 10 Ml Udc) 10 ml PO Q4HP PRN PRN Reason: Cough Heparin Sodium (Porcine) (Heparin 5,000 Unit/Ml Vial) 5,000 unit SQ Q12 [facility] Last Admin: 06/23/21 08:36 Dose: 5,000 unit Documented by: Sodium Chloride (Sodium Chloride 0.9%) 1,000 mls @ 100 mls/hr IV .Q10H [facility] Last Admin: 06/23/21 08:35 Dose: 100 mls/hr Documented by: Acetaminophen (Ofirmev) 650 mg in 65 mls @ 130 mls/hr IV Q6HP PRN; Protocol PRN Reason: Per Pain Protocol/Fever > 101 Last Infusion: 06/22/21 21:35 Dose: Infused Documented by: Ceftriaxone Sodium 2 gm/ (Dextrose) 50 mls @ 100 mls/hr IV Q24H [facility]; Protocol Last Admin: 06/23/21 08:35 Dose: 100 mls/hr Documented by: Magnesium Sulfate (Magnesium Sulfate) 2 gm in 50 mls @ 50 mls/hr IV UD PRN PRN Reason: MG = or < 1.7 Potassium Chloride 40 meq/ (Dextrose) 520 mls @ 130 mls/hr IV UD PRN PRN Reason: K+ = or < 3.5 Iron Carb/Multivit/[place]/Folic Acid (Multivit,Ther Iron,Ca,Fa & Min 1 Tablet) 1 tab PO DAILY [facility] Last Admin: 06/23/21 08:36 Dose: 1 tab Documented by: Melatonin (Melatonin 3 Mg Tablet) 3 mg PO HSP PRN PRN Reason: Insomnia Ondansetron HCl (Ondansetron 4 Mg Odt Tablet) 4 mg SL Q4-6HP PRN; Protocol PRN Reason: Nausea And Vomiting Ondansetron HCl (Ondansetron 4 Mg/2 Ml Vial) 4 mg IV Q4-6HP PRN; Protocol PRN Reason: Nausea And Vomiting Polyethylene Glycol (Polyethylene Glycol 3350 17 Gm Packet) 17 gm PO DAILYP PRN PRN Reason: Constipation Promethazine HCl (Promethazine 25 Mg/Ml Vial) 12.5 mg IM Q6HP PRN; Protocol PRN Reason: Nausea And Vomiting Senna/Docusate Sodium (Sennosides/Docusate Sodium 1 Tab Tablet) 1 tab PO HS [facility] Last Admin: 06/22/21 21:02 Dose: 1 tab Documented by: Sodium Chloride (0.9 % Sodium Chloride 10 Ml Syringe) 10 ml IV Q8 [facility] Last Admin: 06/23/21 05:41 Dose: Not Given Documented by: Sodium Chloride (0.9 % Sodium Chloride 10 Ml Syringe) 10 ml IV Q12 [facility] Last Admin: 06/22/21 21:14 Dose: 10 ml Documented by: Sodium Chloride (0.9 % Sodium Chloride 10 Ml Syringe) 10 ml IV UD PRN PRN Reason: FLUSH A/P Narrative A/P Narrative: [id number] with history of RA/doses admitted with volume depletion/hypercalcemia/complicated UTI and mental status change * Hypercalcemia. 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 Check vitamin D levels, PTH RP, await PTH , status post bi sphosphonate/crystalloids. Calcium down from 15.7-13.2. ESR 100, check protein electrophoresis to rule out myeloma. * Mental status change secondary hypercalcemia * Complicated E. coli UTI- continue Rocephin * Severe volume depletion secondary to hypercalcemia mediated diuresis/ lasix- responding well to crystalloids * Anxiety disorder continue SSRI * History of RAD continue bronchodilators as needed. Plan * Continue crystalloids * Hold diuretics * PTH RP/PTH * SPEP/UPEP * Pre-existing medical condition management on home medication * PT OT nutrition support * discharge planning Time Spent With Patient Time: Total time spent is greater than 50% in coordination of care (as documented) at patient's floor/unit and/or counseling patient: QUALITY VTE Deep Vein Thrombosis/Pulmonary Embolism Present on Admission: No
--- NOTE | 2021-06-23 11:57 | Procedure Note ---
PROC Central Line Placement Right IJ: Consent obtained: written consent Date of Procedure: 06/23/21 Time out performed: Yes Patient placed on monitor/pulse ox: Yes MD prep: mask, sterile gown, sterile gloves and cap Central line prep: 2% Chlorhexidine scrub Local anesthesia used: lidocaine 1% Amount of anesthesia used (mls): 5 Ultrasound used for placement: Yes Central line lumen inserted: quad and 20 cm Post procedure: sutured in place, good blood return, all ports aspirated, flushed, capped and sterile dressing applied Post procedure x-ray: tip of catheter in good position Patient tolerated procedure: well Complications: none
[2021-06-23 13:55] LABS: Parathyroid Hormone Intact-SO 18.1 pg/mL (15.0-65.0)
[2021-06-23] MEDS: MELATONIN 3 MG TABLET PO PRN (20:19)
[2021-06-23] MEDS: SENNOSIDES/DOCUSATE SODIUM 1 TAB TABLET PO SCH (20:19)
[2021-06-23] MEDS: ACETAMINOPHEN 325 MG TABLET PO PRN (20:24)
--- NOTE | 2021-06-23 20:52 | EKG ---
[facility] Test Date: 2021-06-21 Pat Name: Lolita Gutierrez Department: ED Room: Gender: Female Switch Technician: SE : 1945 Requested By: Tulio Clark Order Number: [id number] Reading MD: Riley Hollins Measurements Intervals [place] Rate: 65 P: 61 OK: 169 QRS: 84 QRSD: 144 T: 41 QT: 433 QTc: 451 Interpretive Statements Sinus rhythm Right bundle branch block Electronically Signed On 06-23-2021 20:52:34 PDT by Riley Hollins /store/M0/[id number]
[2021-06-24] MEDS: 0.9 % SODIUM CHLORIDE 1,000 ML IV SCH ×2 (00:15→15:30)
[2021-06-24 06:45] LABS: Basophils # (Auto) 0.03 K/mcL (0.00-0.30); Basophils % (Auto) 0.7 % (0.0-2.0); Eosinophils # (Auto) 0.03 K/mcL (0.00-0.70); Eosinophils % (Auto) 0.7 % (0.0-7.0); Hematocrit 30.4 % (34.1-44.9); Hemoglobin 9.7 g/dL (11.2-15.7); Lymphocytes # (Auto) 1.02 K/mcL (1.50-4.80); Lymphocytes % (Auto) 23.6 % (15.5-49.0); Mean Cell Volume 90.5 fL (80.0-100.0); Mean Corpuscular HGB Conc 31.9 g/dL (31.0-36.0); Mean Platelet Volume 11.3 fL (7.4-10.4); Monocytes # (Auto) 1.18 K/mcL (0.10-0.90); Monocytes % (Auto) 27.3 % (1.0-12.0); Neutrophils % (Auto) 47.7 % (38.0-78.0); Platelet Count 160 K/mcL (140-440); RBC 3.36 M/mcL (3.59-5.38); Red Cell Distribution Width 13.9 % (11.5-14.5); WBC 4.3 K/mcL (4.5-11.0)
[2021-06-24 07:13] LABS: ALT/SGPT 8 U/L (<40); AST/SGOT 16 U/L (<32); Albumin 2.9 gm/dL (3.2-5.2); Albumin/Globulin Ratio 1.2 (1.0-2.3); Alkaline Phosphatase 50 U/L (39-117); Bilirubin,Direct < 0.2 mg/dL (0-0.3); Bilirubin,Total 0.2 mg/dL (0.1-1.0); Blood Urea Nitrogen 23 mg/dL (8-23); Calcium 12.2 mg/dL (8.6-10.4); Carbon Dioxide 22 mmol/L (22-30); Chloride 108 mmol/L (96-108); Globulin 2.5 gm/dL (2.2-3.7); Glomerular Filtration Rate 27; Glucose 76 mg/dL (70-105); Lactate Dehydrogenase 113 U/L (135-225); Phosphorous 2.9 mg/dL (2.5-4.5); Triglycerides 135 mg/dL (<150); Uric Acid 6.9 mg/dL (2.5-8.0)
[2021-06-24] MEDS: DOCUSATE SODIUM 100 MG CAPSULE PO SCH ×2 (08:25→20:36)
[2021-06-24] MEDS: MULTIVIT,THER IRON,CA,FA & MIN 1 TABLET PO SCH (08:25)
[2021-06-24] MEDS: HEPARIN 5,000 UNIT/ML VIAL SQ SCH ×2 (08:25→20:36)
[2021-06-24] MEDS: 0.9 % SODIUM CHLORIDE 10 ML SYRINGE IV SCH ×5 (08:27→20:36)
[2021-06-24] MEDS: cefTRIAXone 2 GM in DEXTROSE 5% IN WATER 50 ML IV SCH (09:09)
--- NOTE | 2021-06-24 09:20 | Internal Med Progress Note ---
SUBJECTIVE Subjective Patient information: Note initiated : 06/24/21 at 9:14 am Service Date, if different from initiated Date: [] Patient: Lolita Gutierrez a 75 y/o F admitted on 06/22/21 for weakness confusion. Chief Complaint: [] Interval history: Ms. Gutierrez is a 75 year old F with a history of CKD stage III /obesity/DJD/RA and sarcoidosis who presented to the ER for worsening weakness that progressed over the last few days. over the last few days she became confused, lethargic, and unable to function. She also complains of loss of appetite and abdominal discomfort. Initial work-up in the ER was consistent with complicated UTI with pyuria and a calcium of 15.7. Patient was started on crystalloid/antibiotic coverage and subsequently hospitalist service was consulted. 06/23-patient seen in room. No overnight events. Central line secured and now ongoing crystalloids/bisphosphonate/hypercalcemia treatments. Hemodynamic stable. Potassium 3.1 on replacement creatinine down to 2 from 2.3. Calcium 13.2 down from 15.7 post bisphosphonate/continue crystalloids. Much more lucid alert and mentating well, following commands, on antibiotic coverage for E. coli UTI. Await PTH, if appropriately suppressed check PTH RP. 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 06/24, patient seen in room was able to ambulate using a walker. Denies lightheadedness dizziness. Electrolytes much improved so potassium 3.6, sodium 139, creatinine down from 2-1.8, calcium down to 12.2 PTH appropriately suppressed, PTH RP pending. Stable hemodynamics. Continue PT OT. Anticipate discharge to SNF on Sunday. Continue holding diuretics at this time. Constitutional Vitals: Vital Signs Temp Pulse Resp BP Pulse Ox 97.6 F 65 18 107/53 100 06/24/21 07:50 06/24/21 07:50 06/24/21 07:50 06/24/21 07:50 06/24/21 07:50 Period Temp Pulse Resp BP Sys/Murdock Pulse Ox Last 24 Hr 97.4 F-98.5 F 65-69 16-18 101-129/53-72 97-100 Intake and Output 06/23/21 06/24/21 06/24/21 21:59 05:59 13:59 Intake Total 1902 498 Output Total 775 250 240 Balance 1127 248 -240 Weight 95.481 kg Alert oriented Nonlabored breathing Anxiety Nondistended abdomen Intake & Output: Intake & Output 06/23/21 06/24/21 06/24/21 21:59 05:59 13:59 Intake Total 1902 498 Output Total 775 250 240 Balance 1127 248 -240 Weight 95.481 kg Intake: IV 1262 258 Sodium Chloride 0.9% 1,000 ml @ 742 258 100 mls/hr IV .Q10H FATOU Rx#: [id number] Potassium Chloride 40 Meq In 520 Dextrose 5% in Water 500 ml @ 130 mls/hr IV UD PRN Rx#: [id number] Oral 640 240 Output: Void Amount 775 250 240 Other: Meal Dinner Percent of Meal Consumed 100% Urine Appearance Clear Clear Clear Urine Color Bright Yellow Bright Yellow Bright Yellow Urine Odor Normal Normal Normal OBJ DATA Labs CBC & Chem 7: 06/24/21 05:48 06/24/21 05:48 Labs: Abnormal Lab Results 06/24/21 06/24/21 06/23/21 05:48 05:48 06:18 WBC 4.3 L RBC 3.36 L Hgb 9.7 L Hct 30.4 L MPV 11.3 H [place] % (Auto) 27.3 H Lymph # (Auto) 1.02 L [place] # (Auto) 1.18 H Absolute Neutrophils Potassium 3.1 L Anion Gap 7.0 L POC BUN BUN 30 H Creatinine 1.8 H 2.0 H POC Creatinine Glucose Calcium 12.2 H 13.2 H* POC WB Ioniz Calcium Lactate Dehydrogenase 113 L 118 L C-Reactive Protein Total Protein 5.4 L 5.8 L Albumin 2.9 L 3.1 L Urine Appearance Urine Nitrate Ur Leukocyte Esterase Urine RBC Urine WBC Urine Bacteria 06/23/21 06/22/21 06/21/21 06:18 07:53 23:21 WBC 4.1 L RBC Hgb 10.5 L Hct 32.2 L MPV 11.0 H [place] % (Auto) 29.4 H Lymph # (Auto) 1.06 L [place] # (Auto) 1.20 H Absolute Neutrophils 1.75 L Potassium Anion Gap POC BUN BUN Creatinine POC Creatinine Glucose Calcium POC WB Ioniz Calcium Lactate Dehydrogenase C-Reactive Protein 1.20 H Total Protein Albumin Urine Appearance Cloudy A Urine Nitrate Pos A Ur Leukocyte Esterase 250 A Urine RBC 9 H Urine WBC > 182 H Urine Bacteria Many A 06/21/21 06/21/21 06/21/21 21:04 21:04 21:01 WBC RBC Hgb Hct MPV 11.2 H [place] % (Auto) 18.8 H Lymph # (Auto) 1.23 L [place] # (Auto) 1.18 H Absolute Neutrophils Potassium Anion Gap POC BUN 39 H BUN 38 H Creatinine 2.3 H POC Creatinine 2.8 H Glucose 64 L Calcium 15.7 H* POC WB Ioniz Calcium 1.87 H* Lactate Dehydrogenase C-Reactive Protein Total Protein Albumin Urine Appearance Urine Nitrate Ur Leukocyte Esterase Urine RBC Urine WBC Urine Bacteria Meds: Medications Acetaminophen (Acetaminophen 325 Mg Tablet) 650 mg PO Q4-6HP PRN; Protocol PRN Reason: Per Pain Protocol/Fever > 101 Last Admin: 06/23/21 20:24 Dose: 650 mg Documented by: Bisacodyl (Bisacodyl 10 Mg Supp.Rect) 10 mg [place] Q2-3DAYS PRN PRN Reason: Constipation Docusate Sodium (Docusate Sodium 100 Mg Capsule) 100 mg PO BID [facility] Last Admin: 06/24/21 08:25 Dose: 100 mg Documented by: Guaifenesin/Codeine Phosphate (Guaifenesin/Codeine 10 Ml Udc) 10 ml PO Q4HP PRN PRN Reason: Cough Heparin Sodium (Porcine) (Heparin 5,000 Unit/Ml Vial) 5,000 unit SQ Q12 [facility] Last Admin: 06/24/21 08:25 Dose: 5,000 unit Documented by: Sodium Chloride (Sodium Chloride 0.9%) 1,000 mls @ 100 mls/hr IV .Q10H [facility] Last Admin: 06/24/21 00:15 Dose: 100 mls/hr Documented by: Acetaminophen (Ofirmev) 650 mg in 65 mls @ 130 mls/hr IV Q6HP PRN; Protocol PRN Reason: Per Pain Protocol/Fever > 101 Last Infusion: 06/22/21 21:35 Dose: Infused Documented by: Ceftriaxone Sodium 2 gm/ (Dextrose) 50 mls @ 100 mls/hr IV Q24H [facility]; Protocol Last Admin: 06/24/21 09:09 Dose: 100 mls/hr Documented by: Magnesium Sulfate (Magnesium Sulfate) 2 gm in 50 mls @ 50 mls/hr IV UD PRN PRN Reason: MG = or < 1.7 Potassium Chloride 40 meq/ (Dextrose) 520 mls @ 130 mls/hr IV UD PRN PRN Reason: K+ = or < 3.5 Last Infusion: 06/23/21 20:30 Dose: Infused Documented by: Iron Carb/Multivit/[employer]/Folic Acid (Multivit,Ther Iron,Ca,Fa & Min 1 Tablet) 1 tab PO DAILY [facility] Last Admin: 06/24/21 08:25 Dose: 1 tab Documented by: Melatonin (Melatonin 3 Mg Tablet) 3 mg PO HSP PRN PRN Reason: Insomnia Last Admin: 06/23/21 20:19 Dose: 3 mg Documented by: Ondansetron HCl (Ondansetron 4 Mg Odt Tablet) 4 mg SL Q4-6HP PRN; Protocol PRN Reason: Nausea And Vomiting Ondansetron HCl (Ondansetron 4 Mg/2 Ml Vial) 4 mg IV Q4-6HP PRN; Protocol PRN Reason: Nausea And Vomiting Polyethylene Glycol (Polyethylene Glycol 3350 17 Gm Packet) 17 gm PO DAILYP PRN PRN Reason: Constipation Promethazine HCl (Promethazine 25 Mg/Ml Vial) 12.5 mg IM Q6HP PRN; Protocol PRN Reason: Nausea And Vomiting Senna/Docusate Sodium (Sennosides/Docusate Sodium 1 Tab Tablet) 1 tab PO HS [facility] Last Admin: 06/23/21 20:19 Dose: 1 tab Documented by: Sodium Chloride (0.9 % Sodium Chloride 10 Ml Syringe) 10 ml IV Q8 [facility] Last Admin: 06/24/21 08:27 Dose: Not Given Documented by: Sodium Chloride (0.9 % Sodium Chloride 10 Ml Syringe) 10 ml IV Q12 [facility] Last Admin: 06/24/21 08:27 Dose: 10 ml Documented by: Sodium Chloride (0.9 % Sodium Chloride 10 Ml Syringe) 10 ml IV UD PRN PRN Reason: FLUSH A/P Narrative A/P Narrative: [id number] with history of sarcoidosis admitted with volume de pletion/hypercalcemia/complicated UTI and mental status change * Hypercalcemia. 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 Await vitamin D levels, PTH RP/SPEP/UPEP PTH appropriately low, status post bisphosphonate/crystalloids. Calcium downtrending from 15.7->12.2. ESR> 100, * Mental status change secondary to hypercalcemia, back to baseline * Complicated E. coli UTI-pansensitive, continue Rocephin * Severe volume depletion secondary to hypercalcemia mediated diuresis/ lasix-responding well to crystalloids * Anxiety disorder continue SSRI * History of RAD continue bronchodilators as needed. Plan * Continue crystalloids * Start diuretics * PTH RP/PTH * SPEP/UPEP * Pre-existing medical condition management on home medication * PT OT nutrition support * discharge planning Time Spent With Patient Time: Total time spent is greater than 50% in coordination of care (as documented) at patient's floor/unit and/or counseling patient: QUALITY VTE Deep Vein Thrombosis/Pulmonary Embolism Present on Admission: No
[2021-06-24] MEDS ORDERED: ALBUTEROL SULFATE 200 PUFF INHALER INH PRN (10:04)
[2021-06-24] MEDS ORDERED: hydrOXYzine 10 MG TABLET PO PRN (10:04)
--- NOTE | 2021-06-24 11:44 | Internal Med Progress Note ---
SUBJECTIVE Subjective Patient information: Note initiated : 06/24/21 at 11:38 am Service Date, if different from initiated Date: [] Patient: Lolita Gutierrez a 75 y/o F admitted on 06/22/21 for weakness confusion. Chief Complaint: [] Interval history: Ms. Gutierrez is a 75 year old F with a history of CKD stage III /obesity/DJD/RA and sarcoidosis who presented to the ER for worsening weakness that progressed over the last few days. over the last few days she became confused, lethargic, and unable to function. She also complains of loss of appetite and abdominal discomfort. Initial work-up in the ER was consistent with complicated UTI with pyuria and a calcium of 15.7. Patient was started on crystalloid/antibiotic coverage and subsequently hospitalist service was consulted. 06/23-patient seen in room. No overnight events. Central line secured and now ongoing crystalloids/bisphosphonate/hypercalcemia treatments. Hemodynamic stable. Potassium 3.1 on replacement creatinine down to 2 from 2.3. Calcium 13.2 down from 15.7 post bisphosphonate/continue crystalloids. Much more lucid alert and mentating well, following commands, on antibiotic coverage for E. coli UTI. Await PTH, if appropriately suppressed check PTH RP. 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 06/24, patient seen in room was able to ambulate using a walker. Denies lightheadedness dizziness. Electrolytes much improved so potassium 3.6, sodium 139, creatinine down from 2-1.8, calcium down to 12.2 PTH appropriately suppressed, PTH RP pending. Stable hemodynamics. Continue PT OT. Anticipate discharge to SNF on Sunday. Continue holding diuretics at this time. 06/25 Constitutional Vitals: Vital Signs Temp Pulse Resp BP Pulse Ox 97.6 F 65 18 107/53 100 06/24/21 07:50 06/24/21 07:50 06/24/21 07:50 06/24/21 07:50 06/24/21 07:50 Period Temp Pulse Resp BP Sys/[place]ock Pulse Ox Last 24 Hr 97.4 F-98.5 F 65-69 16-18 101-129/53-72 97-100 Intake and Output 06/23/21 06/24/21 06/24/21 21:59 05:59 13:59 Intake Total 1902 498 Output Total 775 250 240 Balance 1127 248 -240 Weight 95.481 kg Intake & Output: Intake & Output 06/23/21 06/24/21 06/24/21 21:59 05:59 13:59 Intake Total 1902 498 Output Total 775 250 240 Balance 1127 248 -240 Weight 95.481 kg Intake: IV 1262 258 Sodium Chloride 0.9% 1,000 ml @ 742 258 100 mls/hr IV .Q10H FATOU Rx#: [id number] Potassium Chloride 40 Meq In 520 Dextrose 5% in Water 500 ml @ 130 mls/hr IV UD PRN Rx#: [id number] Oral 640 240 Output: Void Amount 775 250 240 Other: Meal Dinner Percent of Meal Consumed 100% Urine Appearance Clear Clear Clear Urine Color Bright Yellow Bright Yellow Bright Yellow Urine Odor Normal Normal Normal Exam: General: Alert, Awake, No acute Distress, obese Eyes/N/T: EOMI, Head/Neck: neck supple, CV: RRR, No murmurs, Pulm: Clear b/l, no wheezing/rhonchi/rales Abd: soft, nontender, +BS x4 Ext: no clubbing/cyanosis/edema Neuro: Alert, no focal deficits, moves all extremities, Skin: warm/dry OBJ DATA Labs CBC & Chem 7: 06/24/21 05:48 06/24/21 05:48 Labs: Abnormal Lab Results 06/24/21 06/24/21 06/23/21 05:48 05:48 06:18 WBC 4.3 L RBC 3.36 L Hgb 9.7 L Hct 30.4 L MPV 11.3 H [place] % (Auto) 27.3 H Lymph # (Auto) 1.02 L [place] # (Auto) 1.18 H Absolute Neutrophils Potassium 3.1 L Anion Gap 7.0 L POC BUN BUN 30 H Creatinine 1.8 H 2.0 H POC Creatinine Glucose Calcium 12.2 H 13.2 H* POC WB Ioniz Calcium Lactate Dehydrogenase 113 L 118 L C-Reactive Protein Total Protein 5.4 L 5.8 L Albumin 2.9 L 3.1 L Urine Appearance Urine Nitrate Ur Leukocyte Esterase Urine RBC Urine WBC Urine Bacteria 06/23/21 06/22/21 06/21/21 06:18 07:53 23:21 WBC 4.1 L RBC Hgb 10.5 L Hct 32.2 L MPV 11.0 H [place] % (Auto) 29.4 H Lymph # (Auto) 1.06 L [place] # (Auto) 1.20 H Absolute Neutrophils 1.75 L Potassium Anion Gap POC BUN BUN Creatinine POC Creatinine Glucose Calcium POC WB Ioniz Calcium Lactate Dehydrogenase C-Reactive Protein 1.20 H Total Protein Albumin Urine Appearance Cloudy A Urine Nitrate Pos A Ur Leukocyte Esterase 250 A Urine RBC 9 H Urine WBC > 182 H Urine Bacteria Many A 06/21/21 06/21/21 06/21/21 21:04 21:04 21:01 WBC RBC Hgb Hct MPV 11.2 H [place] % (Auto) 18.8 H Lymph # (Auto) 1.23 L [place] # (Auto) 1.18 H Absolute Neutrophils Potassium Anion Gap POC BUN 39 H BUN 38 H Creatinine 2.3 H POC Creatinine 2.8 H Glucose 64 L Calcium 15.7 H* POC WB Ioniz Calcium 1.87 H* Lactate Dehydrogenase C-Reactive Protein Total Protein Albumin Urine Appearance Urine Nitrate Ur Leukocyte Esterase Urine RBC Urine WBC Urine Bacteria Meds: Medications Acetaminophen (Acetaminophen 325 Mg Tablet) 650 mg PO Q4-6HP PRN; Protocol PRN Reason: Per Pain Protocol/Fever > 101 Last Admin: 06/23/21 20:24 Dose: 650 mg Documented by: Albuterol Sulfate (Albuterol Sulfate 200 Puff Inhaler) 2 puff INH Q6HP PRN PRN Reason: Anaphylaxis Bisacodyl (Bisacodyl 10 Mg Supp.Rect) 10 mg [place] Q2-3DAYS PRN PRN Reason: Constipation Docusate Sodium (Docusate Sodium 100 Mg Capsule) 100 mg PO BID [facility] Last Admin: 06/24/21 08:25 Dose: 100 mg Documented by: Escitalopram Oxalate (Escitalopram 10 Mg Tablet) 10 mg PO DAILY [facility] Furosemide (Furosemide 40 Mg Tablet) 40 mg PO QDAY [facility] Guaifenesin/Codeine Phosphate (Guaifenesin/Codeine 10 Ml Udc) 10 ml PO Q4HP PRN PRN Reason: Cough Heparin Sodium (Porcine) (Heparin 5,000 Unit/Ml Vial) 5,000 unit SQ Q12 [facility] Last Admin: 06/24/21 08:25 Dose: 5,000 unit Documented by: Hydroxyzine HCl (Hydroxyzine 10 Mg Tablet) 10 mg PO TIDP PRN PRN Reason: Anaphylaxis Acetaminophen (Ofirmev) 650 mg in 65 mls @ 130 mls/hr IV Q6HP PRN; Protocol PRN Reason: Per Pain Protocol/Fever > 101 Last Infusion: 06/22/21 21:35 Dose: Infused Documented by: Ceftriaxone Sodium 2 gm/ (Dextrose) 50 mls @ 100 mls/hr IV Q24H [facility]; Protocol Last Admin: 06/24/21 09:09 Dose: 100 mls/hr Documented by: Magnesium Sulfate (Magnesium Sulfate) 2 gm in 50 mls @ 50 mls/hr IV UD PRN PRN Reason: MG = or < 1.7 Potassium Chloride 40 meq/ (Dextrose) 520 mls @ 130 mls/hr IV UD PRN PRN Reason: K+ = or < 3.5 Last Infusion: 06/23/21 20:30 Dose: Infused Documented by: Iron Carb/Multivit/[place]/Folic Acid (Multivit,Ther Iron,Ca,Fa & Min 1 Tablet) 1 tab PO DAILY [facility] Last Admin: 06/24/21 08:25 Dose: 1 tab Documented by: Lidocaine (Lidocaine Patch) 1 patch TOPICAL QDAY [facility] Loratadine (Loratadine 10 Mg Tablet) 10 mg PO QDAY FATOU Melatonin (Melatonin 3 Mg Tablet) 3 mg PO HSP PRN PRN Reason: Insomnia Last Admin: 06/23/21 20:19 Dose: 3 mg Documented by: Ondansetron HCl (Ondansetron 4 Mg Odt Tablet) 4 mg SL Q4-6HP PRN; Protocol PRN Reason: Nausea And Vomiting Ondansetron HCl (Ondansetron 4 Mg/2 Ml Vial) 4 mg IV Q4-6HP PRN; Protocol PRN Reason: Nausea And Vomiting Polyethylene Glycol (Polyethylene Glycol 3350 17 Gm Packet) 17 gm PO DAILYP PRN PRN Reason: Constipation Potassium Chloride (Potassium Chloride 10 Meq Tablet) 10 meq PO TIDCC FATOU Promethazine HCl (Promethazine 25 Mg/Ml Vial) 12.5 mg IM Q6HP PRN; Protocol PRN Reason: Nausea And Vomiting Senna/Docusate Sodium (Sennosides/Docusate Sodium 1 Tab Tablet) 1 tab PO HS [facility] Last Admin: 06/23/21 20:19 Dose: 1 tab Documented by: Sodium Chloride (0.9 % Sodium Chloride 10 Ml Syringe) 10 ml IV Q8 [facility] Last Admin: 06/24/21 08:27 Dose: Not Given Documented by: Sodium Chloride (0.9 % Sodium Chloride 10 Ml Syringe) 10 ml IV Q12 [facility] Last Admin: 06/24/21 08:27 Dose: 10 ml Documented by: Sodium Chloride (0.9 % Sodium Chloride 10 Ml Syringe) 10 ml IV UD PRN PRN Reason: FLUSH A/P Narrative A/P Narrative: A: *Hypercalcemia: Likely milk-alkali however however rule out malignancy Calcium downtrending from 15.7->12.2. ESR> 100 *Mental status change: 2/2 above, back to baseline *Complicated (E. coli) UTI: *Severe volume depletion: 2/2 hypercalcemia mediated diuresis/ lasix-responding well to crystalloids *Anxiety disorder: continue SSRI *History of RAD: continue bronchodilators as needed Plan: -status post bisphosphonate/crystalloids. -Start diuretics -Await vitamin D levels, PTH-RP/SPEP/UPEP, PTH appropriately low -continue Rocephin -PT OT nutrition support -ppx: heparin Time Spent With Patient Time: Total time spent is greater than 50% in coordination of care (as documented) at patient's floor/unit and/or counseling patient: QUALITY VTE Deep Vein Thrombosis/Pulmonary Embolism Present on Admission: No
[2021-06-24] MEDS: POTASSIUM CHLORIDE 10 MEQ TABLET PO SCH ×2 (12:30→17:13)
[2021-06-24] MEDS: LIDOCAINE PATCH TOPICAL SCH (14:52)
[2021-06-24] MEDS: SENNOSIDES/DOCUSATE SODIUM 1 TAB TABLET PO SCH (20:36)
[2021-06-24] MEDS: ACETAMINOPHEN 325 MG TABLET PO PRN (20:46)
[2021-06-24] MEDS: MELATONIN 3 MG TABLET PO PRN (20:46)
[2021-06-25] MEDS: 0.9 % SODIUM CHLORIDE 10 ML SYRINGE IV SCH ×5 (05:29→20:23)
[2021-06-25 07:08] LABS: ALT/SGPT 8 U/L (<40); AST/SGOT 14 U/L (<32); Albumin 2.9 gm/dL (3.2-5.2); Albumin/Globulin Ratio 1.3 (1.0-2.3); Alkaline Phosphatase 47 U/L (39-117); Bilirubin,Direct < 0.2 mg/dL (0-0.3); Bilirubin,Total 0.2 mg/dL (0.1-1.0); Blood Urea Nitrogen 20 mg/dL (8-23); Calcium 11.6 mg/dL (8.6-10.4); Carbon Dioxide 23 mmol/L (22-30); Chloride 104 mmol/L (96-108); Globulin 2.3 gm/dL (2.2-3.7); Glomerular Filtration Rate 29; Glucose 85 mg/dL (70-105); Lactate Dehydrogenase 121 U/L (135-225); Phosphorous 2.8 mg/dL (2.5-4.5); Triglycerides 117 mg/dL (<150); Uric Acid 6.4 mg/dL (2.5-8.0)
--- NOTE | 2021-06-25 08:00 | Internal Med Progress Note ---
SUBJECTIVE Subjective Patient information: Note initiated : 06/25/21 at 7:52 am Service Date, if different from initiated Date: [] Patient: Lolita Gutierrez a 75 y/o F admitted on 06/22/21 for weakness confusion. Chief Complaint: [] Interval history: Ms. Gutierrez is a 75 year old F with a history of CKD stage III /obesity/DJD/RA and sarcoidosis who presented to the ER for worsening weakness that progressed over the last few days. over the last few days she became confused, lethargic, and unable to function. She also complains of loss of appetite and abdominal discomfort. Initial work-up in the ER was consistent with complicated UTI with pyuria and a calcium of 15.7. Patient was started on crystalloid/antibiotic coverage and subsequently hospitalist service was consulted. 06/23-patient seen in room. No overnight events. Central line secured and now ongoing crystalloids/bisphosphonate/hypercalcemia treatments. Hemodynamic stable. Potassium 3.1 on replacement creatinine down to 2 from 2.3. Calcium 13.2 down from 15.7 post bisphosphonate/continue crystalloids. Much more lucid alert and mentating well, following commands, on antibiotic coverage for E. coli UTI. Await PTH, if appropriately suppressed check PTH RP. 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 06/24, patient seen in room was able to ambulate using a walker. Denies lightheadedness dizziness. Electrolytes much improved so potassium 3.6, sodium 139, creatinine down from 2-1.8, calcium down to 12.2 PTH appropriately suppressed, PTH RP pending. Stable hemodynamics. Continue PT OT. Anticipate discharge to SNF on Sunday. Continue holding diuretics at this time. 06/25 Calcium improving down to 11.6.Patient complains of constipation. Creatinine 1.7. Endocrine/hematology work-up pending. Did complain of some nausea. Review of Systems: denies headache/fever/chills/vomiting/chest or abdominal pain/cough/dyspnea/diarrhea. Otherwise see above. Constitutional Vitals: Vital Signs Temp Pulse Resp BP Pulse Ox 97.8 F 71 18 109/59 100 06/25/21 07:39 06/25/21 07:39 06/25/21 07:39 06/25/21 07:39 06/25/21 07:39 Period Temp Pulse Resp BP Sys/Murdock Pulse Ox Last 24 Hr 97.6 F-98.7 F 69-80 17-24 94-109/49-79 98-100 Intake and Output 06/24/21 06/25/21 06/25/21 21:59 05:59 13:59 Intake Total 540 240 Output Total 200 450 Balance 340 -210 Weight 97.931 kg Intake & Output: Intake & Output 06/24/21 06/25/21 06/25/21 21:59 05:59 13:59 Intake Total 540 240 Output Total 200 450 Balance 340 -210 Weight 97.931 kg Intake: Oral 540 240 Output: Void Amount 200 450 Other: Meal Dinner Percent of Meal Consumed 75% Feeding Ability Independent Urine Appearance Clear Clear Urine Color Bright Yellow Pale Exam: General: Alert, Awake, No acute Distress, obese Eyes/N/T: EOMI, Head/Neck: neck supple, CV: RRR, No murmurs, Pulm: Clear b/l, no wheezing/rhonchi/rales Abd: soft, nontender, +BS x4 Ext: no clubbing/cyanosis, mild b/l LE edema Neuro: Alert, no focal deficits, moves all extremities, Skin: warm/dry OBJ DATA Labs CBC & Chem 7: 06/24/21 05:48 06/25/21 05:28 Labs: Abnormal Lab Results 06/25/21 06/24/21 06/24/21 05:28 05:48 05:48 WBC 4.3 L RBC 3.36 L Hgb 9.7 L Hct 30.4 L MPV 11.3 H Cherry % (Auto) 27.3 H Lymph # (Auto) 1.02 L Cherry # (Auto) 1.18 H Absolute Neutrophils Potassium Anion Gap BUN Creatinine 1.7 H 1.8 H Calcium 11.6 H 12.2 H Lactate Dehydrogenase 121 L 113 L C-Reactive Protein Total Protein 5.2 L 5.4 L Albumin 2.9 L 2.9 L 06/23/21 06/23/21 06/22/21 06:18 06:18 07:53 WBC 4.1 L RBC Hgb 10.5 L Hct 32.2 L MPV 11.0 H Cherry % (Auto) 29.4 H Lymph # (Auto) 1.06 L Cherry # (Auto) 1.20 H Absolute Neutrophils 1.75 L Potassium 3.1 L Anion Gap 7.0 L BUN 30 H Creatinine 2.0 H Calcium 13.2 H* Lactate Dehydrogenase 118 L C-Reactive Protein 1.20 H Total Protein 5.8 L Albumin 3.1 L Meds: Medications Acetaminophen (Acetaminophen 325 Mg Tablet) 650 mg PO Q4-6HP PRN; Protocol PRN Reason: Per Pain Protocol/Fever > 101 Last Admin: 06/24/21 20:46 Dose: 650 mg Documented by: Albuterol Sulfate (Albuterol Sulfate 200 Puff Inhaler) 2 puff INH Q6HP PRN PRN Reason: Anaphylaxis Bisacodyl (Bisacodyl 10 Mg Supp.Rect) 10 mg MI Q2-3DAYS PRN PRN Reason: Constipation Docusate Sodium (Docusate Sodium 100 Mg Capsule) 100 mg PO BID [facility] Last Admin: 06/24/21 20:36 Dose: 100 mg Documented by: Escitalopram Oxalate (Escitalopram 10 Mg Tablet) 10 mg PO DAILY [facility] Furosemide (Furosemide 40 Mg Tablet) 40 mg PO QDAY [facility] Guaifenesin/Codeine Phosphate (Guaifenesin/Codeine 10 Ml Udc) 10 ml PO Q4HP PRN PRN Reason: Cough Heparin Sodium (Porcine) (Heparin 5,000 Unit/Ml Vial) 5,000 unit SQ Q12 [facility] Last Admin: 06/24/21 20:36 Dose: 5,000 unit Documented by: Hydroxyzine HCl (Hydroxyzine 10 Mg Tablet) 10 mg PO TIDP PRN PRN Reason: Anaphylaxis Acetaminophen (Ofirmev) 650 mg in 65 mls @ 130 mls/hr IV Q6HP PRN; Protocol PRN Reason: Per Pain Protocol/Fever > 101 Last Infusion: 06/22/21 21:35 Dose: Infused Documented by: Ceftriaxone Sodium 2 gm/ (Dextrose) 50 mls @ 100 mls/hr IV Q24H [facility]; Protocol Last Infusion: 06/24/21 09:40 Dose: Infused Documented by: Magnesium Sulfate (Magnesium Sulfate) 2 gm in 50 mls @ 50 mls/hr IV UD PRN PRN Reason: MG = or < 1.7 Potassium Chloride 40 meq/ (Dextrose) 520 mls @ 130 mls/hr IV UD PRN PRN Reason: K+ = or < 3.5 Last Infusion: 06/23/21 20:30 Dose: Infused Documented by: Iron Carb/Multivit/Water Operator/Folic Acid (Multivit,Ther Iron,Ca,Fa & Min 1 Tablet) 1 tab PO DAILY [facility] Last Admin: 06/24/21 08:25 Dose: 1 tab Documented by: Lidocaine (Lidocaine Patch) 1 patch TOPICAL QDAY [facility] Last Admin: 06/24/21 14:52 Dose: Not Given Documented by: Loratadine (Loratadine 10 Mg Tablet) 10 mg PO QDAY [facility] Melatonin (Melatonin 3 Mg Tablet) 3 mg PO HSP PRN PRN Reason: Insomnia Last Admin: 06/24/21 20:46 Dose: 3 mg Documented by: Ondansetron HCl (Ondansetron 4 Mg Odt Tablet) 4 mg SL Q4-6HP PRN; Protocol PRN Reason: Nausea And Vomiting Ondansetron HCl (Ondansetron 4 Mg/2 Ml Vial) 4 mg IV Q4-6HP PRN; Protocol PRN Reason: Nausea And Vomiting Polyethylene Glycol (Polyethylene Glycol 3350 17 Gm Packet) 17 gm PO DAILYP PRN PRN Reason: Constipation Potassium Chloride (Potassium Chloride 10 Meq Tablet) 10 meq PO TIDCC [facility] Last Admin: 06/24/21 17:13 Dose: 10 meq Documented by: Promethazine HCl (Promethazine 25 Mg/Ml Vial) 12.5 mg IM Q6HP PRN; Protocol PRN Reason: Nausea And Vomiting Senna/Docusate Sodium (Sennosides/Docusate Sodium 1 Tab Tablet) 1 tab PO HS [facility] Last Admin: 06/24/21 20:36 Dose: 1 tab Documented by: Sodium Chloride (0.9 % Sodium Chloride 10 Ml Syringe) 10 ml IV Q8 [facility] Last Admin: 06/25/21 05:29 Dose: 10 ml Documented by: Sodium Chloride (0.9 % Sodium Chloride 10 Ml Syringe) 10 ml IV Q12 [facility] Last Admin: 06/24/21 20:35 Dose: 10 ml Documented by: Sodium Chloride (0.9 % Sodium Chloride 10 Ml Syringe) 10 ml IV UD PRN PRN Reason: FLUSH A/P Narrative A/P Narrative: A: *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 ESR> 100 *Encephalopathy: 2/2 above, back to baseline *Complicated (E. coli) UTI: *Severe volume depletion: 2/2 hypercalcemia mediated diuresis/ lasix-responding well to crystalloids *BILLY on CKD IV: improved *Anxiety disorder: continue SSRI *History of RAD: continue bronchodilators as needed *h/o sarcoidosis of skin: *w/u for elevated ESR being done outpt, pt is to see pulmonology, did see dermatology Plan: -status post bisphosphonate/crystalloids -restart home lasix -f/u calcium -Await vitamin D levels, PTH-RP/SPEP/UPEP, PTH appropriately low -continue Rocephin -PT OT nutrition support -ppx: heparin Time Spent With Patient Time: Total time spent is greater than 50% in coordination of care (as documented) at patient's floor/unit and/or counseling patient: QUALITY VTE Deep Vein Thrombosis/Pulmonary Embolism Present on Admission: No
[2021-06-25] MEDS: POTASSIUM CHLORIDE 10 MEQ TABLET PO SCH ×3 (08:22→16:45)
[2021-06-25] MEDS: ACETAMINOPHEN 325 MG TABLET PO PRN ×2 (08:22→18:11)
[2021-06-25] MEDS ORDERED: cefTRIAXone 2 GM VIAL ONE (08:24)
[2021-06-25] MEDS: cefTRIAXone 2 GM in DEXTROSE 5% IN WATER 50 ML IV SCH (08:25)
[2021-06-25] MEDS: LIDOCAINE PATCH TOPICAL SCH (08:32)
[2021-06-25] MEDS: HEPARIN 5,000 UNIT/ML VIAL SQ SCH ×2 (08:37→20:23)
[2021-06-25] MEDS: DOCUSATE SODIUM 100 MG CAPSULE PO SCH ×2 (08:37→20:24)
[2021-06-25] MEDS: LORATADINE 10 MG TABLET PO SCH (08:37)
[2021-06-25] MEDS: FUROSEMIDE 40 MG TABLET PO SCH (08:37)
[2021-06-25] MEDS: MULTIVIT,THER IRON,CA,FA & MIN 1 TABLET PO SCH (08:37)
[2021-06-25] MEDS: ESCITALOPRAM 10 MG TABLET PO SCH (08:37)
[2021-06-25] MEDS ORDERED: POLYETHYLENE GLYCOL 3350 17 GM PACKET PO SCH (10:00)
[2021-06-25] MEDS: SENNOSIDES/DOCUSATE SODIUM 1 TAB TABLET PO SCH ×2 (11:25→20:24)
[2021-06-25] MEDS: TRIAMCINOLONE CREAM 0.1% 15G 1 DOSE TUBE TOPICAL SCH ×2 (11:25→20:24)
--- NOTE | 2021-06-25 16:34 | Discharge Summary ---
Discharge Provider Provider Patient information: Note initiated : 06/25/21 at 4:31 pm Service Date, if different from initiated Date: [] Patient: Lolita Gutierrez 75 y/o F admitted on 06/22/21 for weakness confusion. Chief Complaint: [] Date of admission: 06/22/21 02:26 Discharge date: 06/27/21 Primary care physician: Riley Keller NP Consults: 06/21/21 Consult to Physician [CONS] Stat Comment: Consulting Provider: Mark Ness Reason For Exam: Physician to Consult 06/23/21 09:04 Consult to Physician [CONS] Routine Comment: snf referral Consulting Provider: [facility] Reason For Exam: Physician to Consult Discharge Meds Discharge Medications Home Medications albuterol sulfate 90 mcg/actuation aerosol inhaler (Ventolin HFA) 2 puff INHALATION Q6H PRN 05/19/19 [History Confirmed 06/22/21 Last Taken Unknown] epinephrine 0.3 mg/0.3 mL injection, auto-injector 0.3 mg IM ONCE 05/19/19 [History Confirmed 06/22/21 Last Taken Unknown] acetaminophen 500 mg capsule 3,000 mg PO QDAY PRN cap 10/19/20 [History Confirmed 06/22/21 Last Taken Unknown] lidocaine 5 % topical patch 1 patch TOPICAL QDAY 10/19/20 [History Confirmed 06/22/21 Last Taken Unknown] escitalopram oxalate 20 mg tablet 10 mg PO QDAY tab 12/08/20 [History Confirmed 06/24/21 Last Taken Unknown] docusate sodium 250 mg capsule 250 mg PO BID 02/03/21 [History Confirmed 06/22/21 Last Taken Unknown] fluticasone propionate 50 mcg/actuation nasal spray,suspension (Flonase Allergy Relief) 2 spray INTRANASAL QDAY 02/03/21 [History Confirmed 06/22/21 Last Taken Unknown] furosemide 40 mg tablet 40 mg PO QDAY 02/03/21 [History Confirmed 06/22/21 Last Taken Unknown] loratadine 10 mg tablet (Allergy Relief (loratadine)) 10 mg PO QDAY 02/03/21 [History Confirmed 06/22/21 Last Taken Unknown] potassium chloride 10 mEq capsule,extended release 10 meq PO TID cap 02/03/21 [History Confirmed 06/22/21 Last Taken Unknown] sennosides 8.6 mg tablet (Natural Senna Laxative) 8.6 mg PO QDAY PRN 02/03/21 [History Confirmed 06/22/21 Last Taken Unknown] hydroxyzine HCl 10 mg tablet 10 mg PO TID PRN 05/31/21 [History Confirmed 06/22/21 Last Taken Unknown] COURSE Hospital Course Hospital course: Interval history: Ms. Gutierrez is a 75 year old F with a history of CKD stage III /obesity/DJD/RA and sarcoidosis who presented to the ER for worsening weakness that progressed over the last few days. over the last few days she became confused, lethargic, and unable to function. She also complains of loss of appetite and abdominal discomfort. Initial work-up in the ER was consistent with complicated UTI with pyuria and a calcium of 15.7. Patient was started on crystalloid/antibiotic coverage and subsequently hospitalist service was consulted. 06/23-patient seen in room. No overnight events. Central line secured and now ongoing crystalloids/bisphosphonate/hypercalcemia treatments. Hemodynamic stable. Potassium 3.1 on replacement creatinine down to 2 from 2.3. Calcium 13.2 down from 15.7 post bisphosphonate/continue crystalloids. Much more lucid alert and mentating well, following commands, on antibiotic coverage for E. coli UTI. Await PTH, if appropriately suppressed check PTH RP. 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 06/24, patient seen in room was able to ambulate using a walker. Denies lightheadedness dizziness. Electrolytes much improved so potassium 3.6, sodium 139, creatinine down from 2-1.8, calcium down to 12.2 PTH appropriately suppressed, PTH RP pending. Stable hemodynamics. Continue PT OT. Anticipate discharge to SNF on Sunday. Continue holding diuretics at this time. 06/25 Calcium improving down to 11.6.Patient complains of constipation. Creatinine 1.7. Endocrine/hematology work-up pending. Did complain of some nausea. 06/26 Patient states she slept little better. Creatinine 1.6. Calcium 11.1. 06/27 Doing well. Stable for discharge. A: *Hypercalcemia: milk-alkali vs her underlying Sarcoidosis Calcium downtrending from 15.7>>11.6 *Encephalopathy: 2/2 above, back to baseline *Complicated (E. coli) UTI: *Severe volume depletion: 2/2 hypercalcemia mediated diuresis/ lasix-responding well to crystalloids *BILLY on CKD IV: improved *Anxiety disorder: continue SSRI *History of RAD: continue bronchodilators as needed *h/o sarcoidosis of skin: *w/u for elevated ESR being done outpt, pt is to see pulmonology, did see dermatology Plan: -Await vitamin D levels, PTH-RP/SPEP/UPEP, PTH appropriately low -Hold home calcium/vitamin D supplementation until seen by nephrology and PCP -limit dietary calcium -finish abx course -Continue outpatient work-up for hypercalcemia with nephrology and pulmonology and PCP Discharge diagnosis: Hypercalcemia Encephalopathy complicated UTI severe volume depletion acute Secondary discharge diagnosis: Anxiety reactive airway sarcoidosis of the skin Time Spent with Patient Time attestation: Total time spent providing and/or coordinating discharge services: Time spent: Greater than 30 minutes EXAM Constitutional Vitals: Temp Pulse Resp BP Pulse Ox 97.6 F 73 18 111/62 100 06/25/21 15:45 06/25/21 15:45 06/25/21 15:45 06/25/21 15:45 06/25/21 15:45 Discharge Data Data Completed and Pending Labs on day of discharge: Labs from last 24 hours 06/25/21 05:28 Sodium 135 Potassium 3.8 Chloride 104 Carbon Dioxide 23 Anion Gap 8.0 BUN 20 Creatinine 1.7 H GFR Calculation 29 Glucose 85 Uric Acid 6.4 Calcium 11.6 H Phosphorus 2.8 Magnesium 2.0 Total Bilirubin 0.2 Direct Bilirubin < 0.2 GGT 11 AST 14 ALT 8 Alkaline Phosphatase 47 Lactate Dehydrogenase 121 L Total Protein 5.2 L Albumin 2.9 L Globulin 2.3 Albumin/Globulin Ratio 1.3 Triglycerides 117 Preliminary micro results at discharge 06/22/21 00:48 Blood Culture - Preliminary Blood 06/21/21 20:55 Blood Culture - Preliminary Blood Discharge Plan Patient/Caregiver Discharge Instructions Activity: increase activity as tolerated Diet: Regular Diet Activity Restrictions/Additional Instructions: limit daily/dietary calcium to 1000mg daily until seen by PCP/Emergency Room Clerk Prescriptions: Continued epinephrine 0.3 mg/0.3 mL auto-injector 0.3 mg IM ONCE 0RF albuterol sulfate [Ventolin HFA] 90 mcg/actuation HFA aerosol inhaler 2 puff INHALATION Q6H PRN (Reason: Anaphylaxis) 0RF escitalopram oxalate 20 mg tablet 10 mg PO QDAY 0RF acetaminophen 500 mg capsule 3,000 mg PO QDAY PRN (Reason: Anaphylaxis) 0RF lidocaine 5 % adhesive patch,medicated 1 patch topical QDAY 0RF Rx Instructions: leave on most painful area for up to 12 hrs sennosides [Natural Senna Laxative] 8.6 mg tablet 8.6 mg PO QDAY PRN (Reason: Constipation) 0RF loratadine [Allergy Relief (loratadine)] 10 mg tablet 10 mg PO QDAY 0RF fluticasone propionate [Flonase Allergy Relief] 50 mcg/actuation spray,suspension 2 spray intranasal QDAY 0RF Rx Instructions: administer into each nostril furosemide 40 mg tablet 40 mg PO QDAY 0RF potassium chloride 10 mEq capsule, extended release 10 meq PO TID 0RF docusate sodium 250 mg capsule 250 mg PO BID 0RF hydroxyzine HCl 10 mg tablet 10 mg PO TID PRN (Reason: Anaphylaxis) 0RF Discontinued calcium carbonate-vitamin D3 [Calcium 600 + D(3)] 1 tab PO BID 0RF Other Ambulatory Orders: Basic Metabolic Panel (Routine) Timeframe: 3 Days Facility: [facility] - Location: Laboratory Ordered By: Yasmany Patterson Follow Up Plan Follow up with: Riley Keller NP [Primary Care Provider] - Hardy Abraham MD [Physician] - Patient Disposition: Xfer SNF Prognosis: Fair Rehab Potential: Fair I certify that the patient requires SNF services: Yes Overall status at discharge: patient is progressing back to baseline Discharge Orders: Discharge Order (Routine); Ordered 06/27/21 Ordered By: Yasmany Patterson QUALITY VTE Deep Vein Thrombosis/Pulmonary Embolism Present on Admission: No
[2021-06-25] MEDS: MELATONIN 3 MG TABLET PO PRN (20:24)
--- NOTE | 2021-06-25 21:34 | EKG ---
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 Measurements Intervals Floral Rate: 65 P: 65 PA: 169 QRS: 88 QRSD: 137 T: 44 QT: 404 QTc: 421 Interpretive Statements Sinus rhythm Right bundle branch block Electronically Signed On 06-25-2021 21:33:55 PDT by Laisha Yokr D.O. /[id number]
[2021-06-26] MEDS: ACETAMINOPHEN 325 MG TABLET PO PRN ×2 (03:30→18:56)
[2021-06-26] MEDS: 0.9 % SODIUM CHLORIDE 10 ML SYRINGE IV SCH ×5 (05:10→20:37)
[2021-06-26] MEDS: HEPARIN 5,000 UNIT/ML VIAL SQ SCH ×2 (07:43→20:36)
[2021-06-26] MEDS: MULTIVIT,THER IRON,CA,FA & MIN 1 TABLET PO SCH (07:44)
[2021-06-26] MEDS: ESCITALOPRAM 10 MG TABLET PO SCH (07:44)
[2021-06-26] MEDS: LORATADINE 10 MG TABLET PO SCH (07:44)
[2021-06-26] MEDS: POTASSIUM CHLORIDE 10 MEQ TABLET PO SCH ×3 (07:44→16:31)
[2021-06-26] MEDS: FUROSEMIDE 40 MG TABLET PO SCH (07:45)
[2021-06-26] MEDS: LIDOCAINE PATCH TOPICAL SCH (07:45)
--- NOTE | 2021-06-26 07:46 | Internal Med Progress Note ---
SUBJECTIVE Subjective Patient information: Note initiated : 06/26/21 at 7:42 am Service Date, if different from initiated Date: [] Patient: Lolita Gutierrez a 75 y/o F admitted on 06/22/21 for weakness confusion. Chief Complaint: [] Interval history: Ms. Gutierrez is a 75 year old F with a history of CKD stage III /obesity/DJD/RA and sarcoidosis who presented to the ER for worsening weakness that progressed over the last few days. over the last few days she became confused, lethargic, and unable to function. She also complains of loss of appetite and abdominal discomfort. Initial work-up in the ER was consistent with complicated UTI with pyuria and a calcium of 15.7. Patient was started on crystalloid/antibiotic coverage and subsequently hospitalist service was consulted. 06/23-patient seen in room. No overnight events. Central line secured and now ongoing crystalloids/bisphosphonate/hypercalcemia treatments. Hemodynamic stable. Potassium 3.1 on replacement creatinine down to 2 from 2.3. Calcium 13.2 down from 15.7 post bisphosphonate/continue crystalloids. Much more lucid alert and mentating well, following commands, on antibiotic coverage for E. coli UTI. Await PTH, if appropriately suppressed check PTH RP. 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 06/24, patient seen in room was able to ambulate using a walker. Denies lightheadedness dizziness. Electrolytes much improved so potassium 3.6, sodium 139, creatinine down from 2-1.8, calcium down to 12.2 PTH appropriately suppressed, PTH RP pending. Stable hemodynamics. Continue PT OT. Anticipate discharge to SNF on Sunday. Continue holding diuretics at this time. 06/25 Calcium improving down to 11.6.Patient complains of constipation. Creatinine 1.7. Endocrine/hematology work-up pending. Did complain of some nausea. 06/26 Patient states she slept little better. Creatinine 1.6. Calcium 11.1. Review of Systems: denies headache/fever/chills/vomiting/chest or abdominal pain/cough/dyspnea/diarrhea. Otherwise see above. Constitutional Vitals: Vital Signs Temp Pulse Resp BP Pulse Ox 98 F 76 18 126/66 99 06/26/21 06:41 06/26/21 06:41 06/26/21 06:41 06/26/21 06:41 06/26/21 06:41 Period Temp Pulse Resp BP Sys/[place] Pulse Ox Last 24 Hr 97.2 F-98.7 F 71-80 16-20 98-146/52-81 95-100 Intake and Output 06/25/21 06/26/21 06/26/21 21:59 05:59 13:59 Intake Total 980 50 Output Total 875 550 Balance 105 -500 Weight 97.84 kg Intake & Output: Intake & Output 06/25/21 06/26/21 06/26/21 21:59 05:59 13:59 Intake Total 980 50 Output Total 875 550 Balance 105 -500 Weight 97.84 kg Intake: Oral 980 50 Output: Void Amount 875 550 Other: Stool Size Small Moderate Stool Color Brown Brown Stool Consistency Soft Soft # Bowel Movements 1 Exam: General: Alert, Awake, No acute Distress, obese Eyes/N/T: EOMI, Head/Neck: neck supple, CV: RRR, No murmurs, Pulm: Clear b/l, no wheezing/rhonchi/rales Abd: soft, nontender, +BS x4 Ext: no clubbing/cyanosis, mild-1+ b/l LE edema Neuro: Alert, no focal deficits, moves all extremities, Skin: warm/dry OBJ DATA Labs CBC & Chem 7: 06/24/21 05:48 06/26/21 05:10 Labs: Abnormal Lab Results 06/25/21 06/24/21 06/24/21 05:28 05:48 05:48 WBC 4.3 L RBC 3.36 L Hgb 9.7 L Hct 30.4 L MPV 11.3 H Mchenry % (Auto) 27.3 H Lymph # (Auto) 1.02 L Mchenry # (Auto) 1.18 H Absolute Neutrophils Potassium Anion Gap BUN Creatinine 1.7 H 1.8 H Calcium 11.6 H 12.2 H Lactate Dehydrogenase 121 L 113 L Total Protein 5.2 L 5.4 L Albumin 2.9 L 2.9 L 06/23/21 06/23/21 06:18 06:18 WBC 4.1 L RBC Hgb 10.5 L Hct 32.2 L MPV 11.0 H Mchenry % (Auto) 29.4 H Lymph # (Auto) 1.06 L Mchenry # (Auto) 1.20 H Absolute Neutrophils 1.75 L Potassium 3.1 L Anion Gap 7.0 L BUN 30 H Creatinine 2.0 H Calcium 13.2 H* Lactate Dehydrogenase 118 L Total Protein 5.8 L Albumin 3.1 L Meds: Medications Acetaminophen (Acetaminophen 325 Mg Tablet) 650 mg PO Q4-6HP PRN; Protocol PRN Reason: Per Pain Protocol/Fever > 101 Last Admin: 06/26/21 03:30 Dose: 650 mg Documented by: Albuterol Sulfate (Albuterol Sulfate 200 Puff Inhaler) 2 puff INH Q6HP PRN PRN Reason: Anaphylaxis Bisacodyl (Bisacodyl 10 Mg Supp.Rect) 10 mg NE Q2-3DAYS PRN PRN Reason: Constipation Docusate Sodium (Docusate Sodium 100 Mg Capsule) 100 mg PO BID [facility] Last Admin: 06/25/21 20:24 Dose: 100 mg Documented by: Escitalopram Oxalate (Escitalopram 10 Mg Tablet) 10 mg PO DAILY [facility] Last Admin: 06/25/21 08:37 Dose: 10 mg Documented by: Furosemide (Furosemide 40 Mg Tablet) 40 mg PO QDAY [facility] Last Admin: 06/25/21 08:37 Dose: 40 mg Documented by: Guaifenesin/Codeine Phosphate (Guaifenesin/Codeine 10 Ml Udc) 10 ml PO Q4HP PRN PRN Reason: Cough Heparin Sodium (Porcine) (Heparin 5,000 Unit/Ml Vial) 5,000 unit SQ Q12 [facility] Last Admin: 06/25/21 20:23 Dose: 5,000 unit Documented by: Hydroxyzine HCl (Hydroxyzine 10 Mg Tablet) 10 mg PO TIDP PRN PRN Reason: Anaphylaxis Acetaminophen (Ofirmev) 650 mg in 65 mls @ 130 mls/hr IV Q6HP PRN; Protocol PRN Reason: Per Pain Protocol/Fever > 101 Last Infusion: 06/22/21 21:35 Dose: Infused Documented by: Ceftriaxone Sodium 2 gm/ (Dextrose) 50 mls @ 100 mls/hr IV Q24H [facility]; Protocol Last Admin: 06/25/21 08:25 Dose: Not Given Documented by: Magnesium Sulfate (Magnesium Sulfate) 2 gm in 50 mls @ 50 mls/hr IV UD PRN PRN Reason: MG = or < 1.7 Potassium Chloride 40 meq/ (Dextrose) 520 mls @ 130 mls/hr IV UD PRN PRN Reason: K+ = or < 3.5 Last Infusion: 06/23/21 20:30 Dose: Infused Documented by: Iron Carb/Multivit/[place]/Folic Acid (Multivit,Ther Iron,Ca,Fa & Min 1 Tablet) 1 tab PO DAILY [facility] Last Admin: 06/25/21 08:37 Dose: 1 tab Documented by: Lidocaine (Lidocaine Patch) 1 patch TOPICAL QDAY [facility] Last Admin: 06/25/21 08:32 Dose: Not Given Documented by: Loratadine (Loratadine 10 Mg Tablet) 10 mg PO QDAY [facility] Last Admin: 06/25/21 08:37 Dose: 10 mg Documented by: Melatonin (Melatonin 3 Mg Tablet) 3 mg PO HSP PRN PRN Reason: Insomnia Last Admin: 06/25/21 20:24 Dose: 3 mg Documented by: Ondansetron HCl (Ondansetron 4 Mg Odt Tablet) 4 mg SL Q4-6HP PRN; Protocol PRN Reason: Nausea And Vomiting Ondansetron HCl (Ondansetron 4 Mg/2 Ml Vial) 4 mg IV Q4-6HP PRN; Protocol PRN Reason: Nausea And Vomiting Polyethylene Glycol (Polyethylene Glycol 3350 17 Gm Packet) 17 gm PO DAILYP [facility] Potassium Chloride (Potassium Chloride 10 Meq Tablet) 10 meq PO TIDCC [facility] Last Admin: 06/25/21 16:45 Dose: 10 meq Documented by: Promethazine HCl (Promethazine 25 Mg/Ml Vial) 12.5 mg IM Q6HP PRN; Protocol PRN Reason: Nausea And Vomiting Senna/Docusate Sodium (Sennosides/Docusate Sodium 1 Tab Tablet) 1 tab PO HS [facility] Last Admin: 06/25/21 20:24 Dose: 1 tab Documented by: Senna/Docusate Sodium (Sennosides/Docusate Sodium 1 Tab Tablet) 1 tab PO DAILY [facility] Last Admin: 06/25/21 11:25 Dose: 1 tab Documented by: Sodium Chloride (0.9 % Sodium Chloride 10 Ml Syringe) 10 ml IV Q8 [facility] Last Admin: 06/26/21 05:10 Dose: 10 ml Documented by: Sodium Chloride (0.9 % Sodium Chloride 10 Ml Syringe) 10 ml IV Q12 [facility] Last Admin: 06/25/21 20:23 Dose: 10 ml Documented by: Sodium Chloride (0.9 % Sodium Chloride 10 Ml Syringe) 10 ml IV UD PRN PRN Reason: FLUSH Last Admin: 06/25/21 08:30 Dose: 10 ml Documented by: Triamcinolone Acetonide (Triamcinolone Cream 0.1% 15g 1 Dose Tube) 1 dose TOPICAL BID [facility] Last Admin: 06/25/21 20:24 Dose: 1 dose Documented by: A/P Narrative A/P Narrative: A: *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 ESR> 100 -no monoclonal ab's *Encephalopathy: 2/2 above, back to baseline *Complicated (E. coli) UTI: *Severe volume depletion: 2/2 hypercalcemia mediated diuresis/lasix, responded well to crystalloids *BILLY on CKD IV: improved *Anxiety disorder: continue SSRI *History of RAD: continue bronchodilators as needed *h/o sarcoidosis of skin: *w/u for elevated ESR being done outpt, pt is to see pulmonology, did see dermatology Plan: -status post bisphosphonate/crystalloids -restarted home lasix, IV today for edema -f/u calcium -Await vitamin D levels, PTH-RP/SPEP/UPEP, PTH appropriately low -continue Rocephin -hold home ca/vit D until seen by pcp/nephro -PT OT nutrition support -ppx: heparin Time Spent With Patient Time: Total time spent is greater than 50% in coordination of care (as documented) at patient's floor/unit and/or counseling patient: Total time spent with greater than 50% in coordination of care (as documented) at patient's floor/unit and/or counseling patient:: 25 - 35 minutes QUALITY VTE Deep Vein Thrombosis/Pulmonary Embolism Present on Admission: No
[2021-06-26] MEDS: DOCUSATE SODIUM 100 MG CAPSULE PO SCH ×2 (07:52→20:36)
[2021-06-26] MEDS: SENNOSIDES/DOCUSATE SODIUM 1 TAB TABLET PO SCH ×2 (07:52→20:36)
[2021-06-26 08:20] LABS: Blood Urea Nitrogen 18 mg/dL (8-23); Calcium 11.1 mg/dL (8.6-10.4); Carbon Dioxide 23 mmol/L (22-30); Chloride 105 mmol/L (96-108); Glomerular Filtration Rate 31; Glucose 75 mg/dL (70-105)
[2021-06-26] MEDS: cefTRIAXone 2 GM in DEXTROSE 5% IN WATER 50 ML IV SCH (08:46)
[2021-06-26] MEDS: TRIAMCINOLONE CREAM 0.1% 15G 1 DOSE TUBE TOPICAL SCH ×2 (10:00→20:36)
[2021-06-26] MEDS ORDERED: ALBUMIN HUMAN 12.5 GM/50 ML BAG IV ONE (10:19)
[2021-06-26] MEDS ORDERED: FUROSEMIDE 20 MG/2 ML VIAL IV ONE (10:19)
[2021-06-27] MEDS: ACETAMINOPHEN 325 MG TABLET PO PRN (00:48)
[2021-06-27] MEDS: 0.9 % SODIUM CHLORIDE 10 ML SYRINGE IV SCH ×2 (06:10→08:34)
[2021-06-27 07:00] LABS: Blood Urea Nitrogen 17 mg/dL (8-23); Calcium 11.4 mg/dL (8.6-10.4); Carbon Dioxide 23 mmol/L (22-30); Chloride 104 mmol/L (96-108); Glomerular Filtration Rate 29; Glucose 82 mg/dL (70-105)
[2021-06-27] MEDS: LIDOCAINE PATCH TOPICAL SCH (08:32)
[2021-06-27] MEDS: LORATADINE 10 MG TABLET PO SCH (08:33)
[2021-06-27] MEDS: ESCITALOPRAM 10 MG TABLET PO SCH (08:33)
[2021-06-27] MEDS: MULTIVIT,THER IRON,CA,FA & MIN 1 TABLET PO SCH (08:33)
[2021-06-27] MEDS: FUROSEMIDE 40 MG TABLET PO SCH (08:33)
[2021-06-27] MEDS: DOCUSATE SODIUM 100 MG CAPSULE PO SCH (08:33)
[2021-06-27] MEDS: POTASSIUM CHLORIDE 10 MEQ TABLET PO SCH (08:33)
[2021-06-27] MEDS: HEPARIN 5,000 UNIT/ML VIAL SQ SCH (08:34)
[2021-06-27] MEDS: SENNOSIDES/DOCUSATE SODIUM 1 TAB TABLET PO SCH (08:34)
[2021-06-27] MEDS: cefTRIAXone 2 GM in DEXTROSE 5% IN WATER 50 ML IV SCH (08:34)
[2021-06-27] MEDS: TRIAMCINOLONE CREAM 0.1% 15G 1 DOSE TUBE TOPICAL SCH (08:35)
[2021-06-27 15:06] LABS: Vit D 1,25 Dihydroxy 61 pg/mL (18-72)
[2021-06-27 15:56] LABS: Albumin PEP 3.01 gm/dL (3.10-4.70); Albumin/Globulin Ratio PEP 0.9 RATIO (0.9-1.7); Alpha-1-Globulins 0.22 gm/dL (0.10-0.50); Alpha-2-Globulins 0.66 gm/dL (0.40-1.20); Beta Globulins 1.01 gm/dL (0.60-1.20); Globulin PEP 3.2 gm/dL (2.4-3.6); Total Protein PEP 6.2 gm/dL (5.9-8.4)
[2021-06-29 02:08] LABS: Albumin 35 %; Alpha-1-Globulin 5 %; Alpha-2-Globulin 8 %; Creatinine, Random Urine 83 mg/dL (20-275); Gamma Globulin 28 %; Pro/Creat Ratio 241 mg/g creat (21-161); Protein Total Random Urine 20 mg/dL (5-24)
== END 2021-06-27 11:10 | DRG 640 ==
LOC: ED 19:31 → MEDSUR 06-22 02:26
PROVIDERS: ADMIT Internal Medicine; ATTEND Internal Medicine